=== PATIENT | male | born 1950 | race Caucasian/White ===

== ENCOUNTER 2018-04-27 10:14 | Inpatient (IN) | payer MEDICARE, OTHER ==
[~2018-04-27] VITALS: Ht 180.3 cm; Wt 101.6 kg
[~2018-04-27 10:14] MED LIST: ASPI-630 PO; ATOR20TA58 PO; CRAN1TAB6 PO; CRAN500C6 PO; CYAN10005 PO; FOLI1TAB16 PO; HYDR10TA2 PO; METO100T7 PO; MULT-289 PO; THIA100T8 PO; TRAM50TA PO
--- NOTE | 2018-04-27 10:29 | EKG ---
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
[2018-04-27 10:34] LABS: HEMOGLOBIN 15.2 g/dL (13.0-17.5); RED BLOOD COUNT 4.63 x10^6/uL (4.30-5.70); RED CELL DISTRIBUTION WIDTH 12.7 % (11.5-14.5); WHITE BLOOD COUNT 5.7 x10^3/uL (4.0-11.0)
--- NOTE | 2018-04-27 10:40 | RAD ---
CT head without intravenous contrast History: Code stroke. Found on floor and vomiting. Comparison: None. Technique: Axial images are obtained of the head from the skull base through the vertex without IV contrast. Exposure: One or more of the following individualized dose reduction techniques were utilized for this examination: 1. Automated exposure control 2. Adjustment of the mA and/or kV according to patient size 3. Use of iterative reconstruction technique Findings: Small old cortical infarctions are again seen involving the lateral right frontoparietal junction as well as involving the right right occipital parietal junction; these are without appreciable change. Moderate nonspecific white matter low-attenuation seen, probably from chronic microvascular ischemic disease. Small, old bilateral caudate head lacunar infarctions are seen. The ventricles are appropriate in size, shape, and location for the patient's age. No obvious intracranial mass, mass-effect, midline shift, hemorrhage or obvious acute infarction is identified. Basilar cisterns are patent. Bone windows demonstrate no acute calvarial abnormality. Mild-moderate pansinus disease is seen. Impression: 1. No acute intracranial process. Please note that CT can be relatively insensitive to acute ischemic infarction for up to 24 hours after symptom onset. 2. Chronic changes. 3. Results called to referring emergency department physician, Dr. Flood, at 1036 hours. Electronically signed by: Slim Dobbs MD (04/27/2018 10:37 AM) [place] [id number]
[2018-04-27 10:43] LABS: CALCIUM 9.5 mg/dL (8.5-10.1); CREATININE 0.8 mg/dL (0.7-1.3); GFR 95.8; POTASSIUM 4.9 mmol/L (3.5-5.1)
--- NOTE | 2018-04-27 10:51 | PHYS DOC ---
Past History Past Medical History: Alcoholism, COPD, High Cholesterol, Heart Disease, Hypertension, Lung Disease, [place] Past Surgical History: Other Smoking: Cigarettes, Less than 1pk/day Alcohol Use: Occasionally Drug Use: None Adult General Chief Complaint Chief Complaint: NEURO SYMPTOMS/DEFICITS HPI HPI 67-year-old male presents via EMS with concern for stroke. [facility] The patient woke up this morning around 6 AM and was watching TV. He went to stand up from his chair and had left-sided weakness and collapse to the floor. He laid on the floor for about 3 hours. The patient sleeps in that chair so there is no definitive time when he was known normal. He lives by himself. He tells me that over this period of time he feels like his speech has gotten garbled and then cleared up. He says that it is intermittent and comes and goes. He denies headache. He has known left-sided weakness. He states that his left hand "does not work" and this is not new. He is not sure if the weakness is worse at this time, but he doesn't normally fall from the weakness. He states having a history of A. fib but is not on a blood thinner. He does take aspirin. He denies chest pain or shortness of breath. He is able to answer questions without difficulty. He denies fever or chills. Review of Systems Review of Systems Constitutional: Denies fever or chills [] Eyes: Denies change in visual acuity, redness, or eye pain [] HENT: Denies nasal congestion or sore throat [] Respiratory: Denies cough or shortness of breath [] Cardiovascular: No additional information not addressed in HPI [] GI: Denies abdominal pain, nausea, vomiting, bloody stools or diarrhea [] : Denies dysuria or hematuria [] Musculoskeletal: Denies back pain or joint pain [] Integument: Denies rash or skin lesions [] Neurologic: Increased left-sided weakness, slurred speech[] Endocrine: Denies polyuria or polydipsia [] All other systems were reviewed and found to be within normal limits, except as documented in this note. Allergies Allergies Allergies Coded Allergies Type Severity Reaction Last Updated Verified Evrjokg-Upk-Nvg Reductase Inhibitor Allergy Intermediate 12/24/13 Yes Physical Exam Physical Exam Constitutional: Well developed, well nourished, no acute distress, non-toxic appearance. [] HENT: Normocephalic, atraumatic, bilateral external ears normal, oropharynx moist, no oral exudates, nose normal. [] Eyes: PERRLA, EOMI, conjunctiva normal, no discharge. [] Neck: Normal range of motion, no tenderness, supple, no stridor. [] Cardiovascular:Heart rate regular rhythm, no murmur [] Lungs & Thorax: Bilateral breath sounds clear to auscultation [] Abdomen: Bowel sounds normal, soft, no tenderness, no masses, no pulsatile masses. [] Skin: Warm, dry, no erythema, no rash. [] Back: No tenderness, no CVA tenderness. [] Extremities: No tenderness, no cyanosis, no clubbing, ROM intact, no edema. [] Neurologic: Alert and oriented X 3, decreased strength in the left upper 4/5 and lower extremity 3/5. 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 [ ] Psychologic: Affect normal, judgement normal, mood normal. [] Current Patient Data Lab Results Laboratory Tests Test 04/27/18 10:22 04/27/18 10:23 Glucose (Fingerstick) 126 mg/dL (70-99) H White Blood Count 5.7 x10^3/uL (4.0-11.0) Red Blood Count 4.63 x10^6/uL (4.30-5.70) Hemoglobin 15.2 g/dL (13.0-17.5) Hematocrit 45.0 % (39.0-53.0) Mean Corpuscular Volume 97 fL (79-100) Mean Corpuscular Hemoglobin 33 pg (25-35) Mean Corpuscular Hemoglobin Concent 34 g/dL (31-37) Red Cell Distribution Width 12.7 % (11.5-14.5) Platelet Count 354 x10^3/uL (140-400) EKG EKG Sinus tachycardia, rate 102, ST depressions in lead 1, 2, V4 through V6[] Radiology/Procedures Radiology/Procedures [] Impressions: CT head without intravenous contrast History: Code stroke. Found on floor and vomiting. Comparison: None. Technique: Axial images are obtained of the head from the skull base through the vertex without IV contrast. Exposure: One or more of the following individualized dose reduction techniques were utilized for this examination: 1. Automated exposure control 2. Adjustment of the mA and/or kV according to patient size 3. Use of iterative reconstruction technique Findings: Small old cortical infarctions are again seen involving the lateral right frontoparietal junction as well as involving the right right occipital parietal junction; these are without appreciable change. Moderate nonspecific white matter low-attenuation seen, probably from chronic microvascular ischemic disease. Small, old bilateral caudate head lacunar infarctions are seen. The ventricles are appropriate in size, shape, and location for the patient's age. No obvious intracranial mass, mass-effect, midline shift, hemorrhage or obvious acute infarction is identified. Basilar cisterns are patent. Bone windows demonstrate no acute calvarial abnormality. Mild-moderate pansinus disease is seen. Impression: 1. No acute intracranial process. Please note that CT can be relatively insensitive to acute ischemic infarction for up to 24 hours after symptom onset. 2. Chronic changes. 3. Results called to referring emergency department physician, Dr. Uriostegui, at 1036 hours. Electronically signed by: Angelina Cisneros MD (04/27/2018 10:37 AM) [place] [id number] DICTATED AND SIGNED BY: ANGELINA CISNEROS MD DATE: 04/27/18 1031 CC: DAVID URIOSTEGUI DO; PCP,NO Course & Med Decision Making Course & Med Decision Making Pertinent Labs and Imaging studies reviewed. (See chart for details) The patient's labs are unremarkable. His troponin is negative. His EKG shows some depressions, but not a clear definitive pattern. The patient's head CT is negative for acute findings. The patient appears to be doing better overall. His speech is clear. He states no longer feeling left-sided numbness in his face. Throughout the strength testing portion of my exam, the patient reiterated that my findings were his baseline, so it is hard to definitively determine if his weakness is increased or not. I discussed the case with Dr. Koenig and he has agreed to admit the patient with consult to neurology. The patient is in agreement with this plan. 35 minutes of critical care time spent on this patient. This is exclusive of other separately billable procedures. [] Dragon Disclaimer Dragon Disclaimer This electronic medical record was generated, in whole or in part, using a voice recognition dictation system. NIH Stroke Scale: NIH Stroke Scale Response (Comments) Value Level of Consciousness: 0 Alert/Responsive 0 LOC Questions: 0 Answers both correctly 0 LOC Commands: 0 Performs both tasks 0 Best Gaze: 0 Normal 0 Visual: 0 No visual loss 0 Facial Palsy: 1 Minor paralysis 1 Motor - Left Arm 1 Drifts, but can hold 1 Motor - Right Arm 0 No drift 0 Motor - Left Leg 1 Drift but can hold 1 Motor: Right Leg 0 No drift 0 Limb Ataxia: 0 Absent 0 Sensory: 1 Mid to moderate loss 1 Best Language: 0 Normal 0 Dysathria: 0 Normal 0 Extinction and Inattention: 0 Normal 0 Total 4 Departure Departure: Referrals: PCP,NO (PCP) DAVID URIOSTEGUI DO Apr 27, 2018 10:51
[2018-04-27] MEDS ORDERED: IV NORMAL SALINE 1,000ML 1,000 ML IV ONE (11:00)
--- NOTE | 2018-04-27 12:31 | RAD ---
PORTABLE CHEST 1V History: portable chest 1 view - code stroke, slurred speech. Comparison: None. Cardiomediastinal silhouette is upper limits normal in width. Hyperexpansion of both lungs compatible with emphysema. No focal consolidation or infiltrate. Minimal left lung base markings compatible with atelectasis. No pneumothorax identified. No evidence of pleural effusion. Impression: Minimal left lung base atelectasis. No focal consolidation. Electronically signed by: Slim Bhagat MD (04/27/2018 12:28 PM) [facility]
[2018-04-27 12:41] LABS: BACTERIA,URINE 0 /HPF (0-FEW); BILIRUBIN,URINE NEG (NEG); CLARITY,URINE CLEAR; COLOR,URINE YELLOW; GLUCOSE,URINE NEG (NEG); NITRITE,URINE NEG (NEG); RBC,URINE OCC /HPF (0-2); UROBILINOGEN,URINE 0.2 mg/dL (0.2 mg/dL); WBC,URINE OCC /HPF (0-4)
[2018-04-27 12:42] LABS: SQUAMOUS EPITHELIAL CELL,UR FEW /LPF
[2018-04-27 13:00] VITALS: BP 117/79
--- NOTE | 2018-04-27 14:34 | HP ---
ADMIT DATE: 04/27/2018 HISTORY OF PRESENT ILLNESS: The patient is a 67-year-old male patient who was brought by the emergency medical service personnel with concern for stroke. He was diverted from the [facility]. The patient woke up this morning at around 6:00 a.m. and was watching TV. He went to stand up from his chair and he has had left-sided weakness and collapsed to the floor. He laid on the floor for about 3 hours. The patient sleeps in the chair, so there is no definite time. When he was normal, he lives by himself and he stated that over this period of time, he feels like his speech has gotten garbled and then cleared up. He states that is intermittent and comes and goes. He denied any headache. He is known to have left-sided weakness and he stated that his left hand does not work, but that is not new. He is not sure whether if the weakness is worse at this time, but he does normally fall from the weakness. He apparently was knocking on the floor when his neighbor heard the noise and came and called the ambulance to bring him to the Emergency Room. By the time arrived to the Emergency Room. He was awake, alert, answered all questions without difficulty. He was extensively investigated. Had had a CT scan of the head without contrast, which basically showed no acute intracranial process and has some chronic changes. His chest x-ray was unremarkable and his lab works were all within acceptable range and was admitted for further evaluation and to consult Dr. Patel for possible new onset TIA. He apparently is known to have right carotid artery stenosis, status post right carotid endarterectomy that was done about 6 years ago at the [facility]. He stated that he did have carotid Doppler ultrasound done recently at the [facility] was interpreted as normal. When I examined him this afternoon, he was awake, alert and stated that he feel that he is weak on the left side, does not get back to his baseline. PAST MEDICAL HISTORY: Significant for hypertension, has right middle cerebral artery territory infarct with left-sided hemiplegia from which he has recovered substantially. He was found at this time has a right carotid stenosis for which he underwent carotid endarterectomy about 6-7 years ago. His other medical problems include COPD. PAST SURGICAL HISTORY: Significant for colonoscopy and right carotid endarterectomy. FAMILY HISTORY: He has 2 brothers and 2 sisters who are alive and healthy. His younger brother at the age of 55 with myocardial infarction. His father at the age of 78 because of myocardial infarction. His mother is still alive at the age of 87 and healthy. SOCIAL HISTORY: He is . He has 1 daughter and 2 sons. He currently smokes. He used to smoke a pack a day and drinks alcohol occasionally. 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 ALLERGIES: He has no known drug allergies. REVIEW OF SYSTEMS: The patient denied any blurring of vision, cataract, glaucoma or macular degeneration. Denied any earache, tinnitus or sensorineural deafness. Denied any nosebleeds, stuffy nose or postnasal drip. Denied any sore throat, sore tongue, toothache, hoarseness of voice or difficulty swallowing. Denied any nausea, vomiting, diarrhea or constipation. Denied any hematemesis, melena or hematochezia. He denied any dysuria, frequency or hematuria. Denied any chest pain. Denied any cough, phlegm or hemoptysis. Denied any chills, rigors or fever. MEDICATIONS: His medication list is not available yet. PHYSICAL EXAMINATION: GENERAL: When I examined him this afternoon, he looked well and was clearly in no apparent respiratory distress. No pallor, jaundice, cyanosis or thyromegaly. No jugular venous distension. No lower limb edema. VITAL SIGNS: His heart rate was 102, blood pressure 134/100, temperature was 98, respiratory rate was 16 and oxygen saturation was 99%. HEAD, EYES, EARS, NOSE AND THROAT: Showed normocephalic, atraumatic. NECK: Supple. HEART: Showed normal first and second heart sounds with no gallop, rub or murmur. CHEST: Clear to auscultation. No crepitation or rhonchi. ABDOMEN: Distended, soft, nontender. No guarding or rigidity. No organomegaly. Hernial orifice intact. Bowel sounds normal. NEUROLOGIC: He is awake, alert, responding appropriately. All cranial nerves intact. He definitely has left-sided hemiparesis, worse in the right upper extremity than left lower extremity. LABORATORY DATA: His lab work on admission showed a serum sodium 136, potassium 4.9, chloride 97, bicarbonate 28, anion gap of 11, BUN 16, creatinine 0.8, estimated GFR was 96 mL per minute, his glucose 140, calcium was 9.5. His white cell count was 5700, hemoglobin 15, hematocrit 45, MCV 97 and platelet count of 354,000. His prothrombin time was 9.8, INR of 1, aPTT was 25. Urinalysis showed the urine was yellow, clear with a pH of 5.5, specific gravity of 1.010. There is small amount of protein. The urine was negative for glucose, ketones, trace of blood, negative for nitrite and bilirubin as well as leukocyte esterase. There are occasional rbc's, occasional wbc's, and no bacteria. His chest x-ray showed that the patient has minimal left lung base atelectasis and a CT scan of his brain showed that he has some old cortical infarction involving the lateral right frontoparietal junction as well as involving the right occipital parietal junction. These are without appreciable changes. He has moderate nonspecific white matter low attenuation seen, probably from chronic microvascular ischemic disease, small old bilateral caudate head lacunar infarction is seen. The ventricles are appropriate in size, shape and formation for the patient's age. No obvious intracranial mass, mass effect or midline shift, hemorrhage or obvious acute infarction is identified. Basilar cisterns are patent. The bone windows demonstrate no acute calvarial abnormality, [id number] oliver sinus disease is seen. IMPRESSION AND PLAN: The patient was basically admitted with weakness and fall on the floor with probably worsening on the left-sided weakness. The patient did not lose consciousness. He did not bite his tongue or become incontinent. He is known to have atrial fibrillation, but he is on aspirin. He used to be on Coumadin, but he said bleed multiple times and decided to stop taking Coumadin on his own. My plan is to admit him to [address] [place] [address]. We will try to get the result of carotid Doppler ultrasound done at the [facility]. We will check his fasting lipid profile tomorrow and consult Dr. Patel and also physical and occupational therapy. NASRA RAOZ MD DR: ANDRE/treva JOB#: [id number] / [id number]
--- NOTE | 2018-04-27 14:57 | EKG ---
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
[2018-04-27] MEDS ORDERED: LORazepam 2 MG/ML VIAL IV PRN (15:00)
[2018-04-27] MEDS ORDERED: chlordiazePOXIDE HCL 25 MG CAPSULE PO PRN ×2 (15:00)
[2018-04-27] MEDS ORDERED: LORazepam 1 MG TABLET PO PRN (15:00)
[2018-04-27] MEDS ORDERED: HALOPERIDOL LACT 5 MG/ML VIAL. IM PRN (15:00)
[2018-04-27] MEDS ORDERED: SENNOSIDES/DOCUSATE 8.6/50MG TABLET. PO PRN (15:15)
[2018-04-27] MEDS ORDERED: ALBUTEROL SULFATE 8GM INHALER. IH PRN (15:15)
[2018-04-27] MEDS ORDERED: MAG355OR11 PO (15:29)
[2018-04-27] MEDS ORDERED: CYCL5TAB PO (15:29)
[2018-04-27] MEDS ORDERED: NAPR-514 PO (15:29)
[2018-04-27] MEDS ORDERED: EZET10TA18 PO (15:29)
[2018-04-27] MEDS ORDERED: CALCIUM 500 MG PO (15:29)
[2018-04-27] MEDS ORDERED: ALBU18HF IH (15:29)
[2018-04-27] MEDS ORDERED: SENN-37 PO (15:29)
[2018-04-27] MEDS ORDERED: LISI40TA PO (15:29)
[2018-04-27] MEDS ORDERED: CHOL10003 PO (15:29)
[2018-04-27] MEDS ORDERED: ACET-1571 PO (15:29)
[2018-04-27] MEDS ORDERED: DOXE50CA PO (15:29)
[2018-04-27] MEDS ORDERED: OLOD4MIS2 IH (15:29)
[2018-04-27] MEDS ORDERED: OMEG-33 PO (15:29)
[2018-04-27 15:36] VITALS: BP 131/82
[2018-04-27] MEDS ORDERED: MAG HYDROX/AL HYDROX/SIMETH 30 ML ORAL.SUSP PO PRN (15:45)
[2018-04-27] MEDS ORDERED: CYCLOBENZAPRINE 10 MG TABLET. PO PRN (15:45)
[2018-04-27] MEDS ORDERED: ALBUTEROL SULFATE 2.5 MG/3 ML NEBU. NEB PRN (16:00)
[2018-04-27 19:15] VITALS: BP 130/74
[2018-04-27] MEDS: DOXEPIN HCL 25 MG CAPSULE PO SCH (20:24)
[2018-04-27] MEDS: OMEGA-3 FATTY ACIDS/FISH OIL 1,000 MG CAPSULE. PO SCH (20:25)
[2018-04-27] MEDS: METOPROLOL TART IMMED RELEASE 25 MG TABLET PO SCH (20:25)
[2018-04-27] MEDS: CALCIUM CARBONATE 500 MG TABLET PO SCH (20:25)
--- NOTE | 2018-04-27 22:05 | CONS ---
DATE OF CONSULTATION: 04/27/2018 NEUROLOGICAL CONSULTATION REASON FOR CONSULTATION: Rule out stroke versus TIA. HISTORY OF PRESENT ILLNESS: This is a 67-year-old right-handed male who was admitted through Emergency Room this morning after he presented with chief complaints of worsening of his left-sided weakness and slurred speech. According to the patient, he was talking to his daughter on phone and she told him his speech was not clear. When he got out of the chair, he fell to the floor and he was not able to stand up. Therefore, he stayed on the floor for approximately 3 hours, then he knocked on his door asking for help. EMS was activated and brought the patient to the Emergency Room. The patient did recall the event and he was alert and oriented. According to the patient, he had history of 2 strokes, the first stroke was in 2008 and the second stroke was 2013. The etiology of his throat is not clear. He mentioned about possible intracranial bleed because of severe hypertension, however, he underwent a right carotid endarterectomy after the second stroke. As a result of the stroke, he had left hemiparesis, required extensive rehabilitation. The patient stated his left side has been worsened than the baseline and his speech has been close to normal. He denies headaches, visual disturbances, chest pain, shortness of breath, palpitation, or vertigo. He denies any recent head injuries. The patient has been using a walker for ambulation. Initial nonenhanced head CT scan revealed no evidence of acute intracranial process, but shows bilateral caudate head lacunar infarct and bilateral white matter small vessel ischemic changes. PAST MEDICAL HISTORY: Significant for stroke as described above resulted in left-sided weakness, hypertension, coronary artery disease, COPD, and bilateral hearing loss. SOCIAL HISTORY: The patient is single. He has 1 daughter and 2 sons. He smokes currently, but he used to smoke 1 pack of cigarettes daily. He drinks alcohol occasionally. FAMILY HISTORY: His father at the age of 78 from myocardial infarction and his mother is alive at age of 87. CURRENT HOME MEDICATIONS: Tylenol, aspirin 81 mg daily, Librium, vitamin B12, Flexeril, doxepin, Zetia, fish oil, folic acid, haloperidol, lisinopril, lorazepam, multivitamins and calcium, and vitamin D3. ALLERGIES: STATINS. REVIEW OF SYSTEMS: A 10-point review of system was performed and consistent with left-sided weakness as mentioned above in history of present illness and intermittent shortness of breath secondary to COPD. PHYSICAL EXAMINATION: GENERAL: An obese white male, not in acute distress. He weighs 224 pounds with BMI of 31.2. VITAL SIGNS: Blood pressure 131/82, respiratory rate 20, pulse is 117, temperature 98.2, oxygen saturation is 95% on room air. HEENT: Normocephalic, atraumatic, otherwise unremarkable. NECK: Supple. Negative for carotid bruit, lymphadenopathy, or thyromegaly. LUNGS: Diminished breath sounds bilaterally. No wheezing or rales. CARDIOVASCULAR: Tachycardia. Normal S1, S2. ABDOMEN: Soft. Bowel sounds positive. EXTREMITIES: Negative for cyanosis, clubbing, or pitting edema. NEUROLOGIC: Mental status: The patient is alert and oriented x 3. Speech is fluent. There is no language dysfunction. Memory, judgment, and abstract thinking are normal. The patient denies hallucination or delusion. CRANIAL NERVES: Visual waddell are full. The pupils are reactive to light and accommodation. The extraocular movements are intact. There is no nystagmus. There is no facial motor or sensory deficit. Hearing is diminished bilaterally. The palate is elevated symmetrically. Sternocleidomastoid muscles are powerful bilaterally. The patient shrugs his shoulders symmetrically, protrudes his tongue in the midline without fasciculation or atrophy. MOTOR: No focal muscle bulk was seen. The tone is normal. The strength is 4/5 in the left upper and lower extremities, more distally than proximally compared to those on the right side. Sensory examination revealed diminished pinprick and light touch senses over the left face, upper and lower extremities in all dermatomes. Deep tendon reflexes were symmetric and hypoactive with absent Achilles responses. Gait: The patient has unsteady stand and he uses a walker for ambulation. LABORATORY DATA: CBC revealed white blood cells of 5700, hemoglobin 15.2, hematocrit 44, platelet count 354,000. Chemistry revealed sodium 136, potassium 4.9, chloride 97, CO2 of 28, BUN 16, creatinine 0.8, and glucose 140. Calcium 9.5. Troponin level less than 0.017. Coagulation: PT is 9.8, INR 1, and PTT is 25. DIAGNOSTIC DATA: Chest x-ray revealed minimal left lung base atelectasis and a nonenhanced head CT scan as described above in the history of present illness. IMPRESSION: 1. Longstanding history of stroke and two strokes resulted in left hemiparesis with possible worsening since this morning, suggestive of possible a new stroke based on the history. However, physical examination revealed left hemiparesis, typical for stroke and left hemisensory deficits. 2. Multiple medical problems include hypertension and chronic obstructive pulmonary disease, status post right carotid endarterectomy. RECOMMENDATIONS: 1. [facility]. 2. We will increase baby aspirin to 2 tablets daily with food. 3. We will continue with physical therapy. 4. Continue with current management initiated by Dr. Koenig. M Aneesh TARANGO MD DR: REYNA/treva JOB#: [id number] / [id number]
[2018-04-27 22:35] VITALS: BP 147/79
[2018-04-28 05:41] VITALS: BP 162/89
[2018-04-28 06:56] LABS: CALCIUM 9.2 mg/dL (8.5-10.1); CREATININE 0.9 mg/dL (0.7-1.3); GFR 83.7; MAGNESIUM 2.2 mg/dL (1.8-2.4); POTASSIUM 3.8 mmol/L (3.5-5.1)
[2018-04-28] MEDS: CHOLECALCIFEROL (VITAMIN D3) 1,000 UNIT TABLET PO SCH (08:36)
[2018-04-28] MEDS: CYANOCOBALAMIN (VITAMIN B-12) 1,000 MCG TABLET. PO SCH (08:36)
[2018-04-28] MEDS: LISINOPRIL 20 MG TABLET PO SCH (08:36)
[2018-04-28] MEDS: EZETIMIBE 10 MG TABLET PO SCH (08:37)
[2018-04-28] MEDS: ACETAMINOPHEN 500 MG TABLET PO SCH (08:37)
[2018-04-28] MEDS: ASPIRIN 81 MG TAB.CHEW PO SCH (08:38)
[2018-04-28] MEDS: METOPROLOL TART IMMED RELEASE 25 MG TABLET PO SCH ×2 (08:38→20:14)
[2018-04-28] MEDS: MULTIVITAMIN with MINERAL TABLET. PO SCH (08:38)
[2018-04-28] MEDS: FOLIC ACID 1 MG TABLET PO SCH (08:38)
[2018-04-28] MEDS: OMEGA-3 FATTY ACIDS/FISH OIL 1,000 MG CAPSULE. PO SCH ×2 (08:38→20:11)
[2018-04-28] MEDS: THIAMINE IM 200 MG/2 ML VIAL. IM SCH (08:39)
[2018-04-28] MEDS: CALCIUM CARBONATE 500 MG TABLET PO SCH ×2 (08:39→15:25)
[2018-04-28] MEDS ORDERED: MULTIVITAMIN with MINERAL TABLET. PO SCH (09:00)
[2018-04-28] MEDS ORDERED: ASPIRIN 81 MG TAB.CHEW PO SCH (09:00)
[2018-04-28] MEDS ORDERED: NON FORMULARY ITEM (Olodaterol HCl (Striverdi Respimat) 2 PUFF) IH SCH (09:00)
--- NOTE | 2018-04-28 09:02 | PDOC2 ---
CONSULT Date of Admission DATE: 04/28/18 TIME: 09:02 Reason for Consult: sinus tachycardia Problem List Problems Medical Problems: (1) TIA (transient ischemic attack) Status: Acute History of Present Illness Mr Hickey is a 67-year-old white male with history of paroxysmal atrial fibrillation, CVA, TIA, hypertension who normally follows at the [facility]. He normally sleeps in a recliner and yesterday morning when he woke he had increased left sided weakness which caused a fall when he tried to stand. He has previous history of a CVA with left sided hemiparesis which improved after extensive rehab along with some minimal slurring. yesterday both symptoms were apparently significantly worse. He was unable to get up on his own and was found by a neighbor who called EMS. By arrival to the ED his symptoms had essentially resolved and he was back to baseline. He reports having had intermittent episodes of speech impairment for some time. He denies any chest pain, dyspnea or congestive symptoms. He does have a history of paroxysmal atrial fibrillation and takes aspirin alone. He reports stopping warfarin due to recurrent nose bleeds but indicates he is unsure of weather his INR had been steady and believes he only took the warfarin for a couple weeks. He does report frequent falls at home do to his balance and weakness. He denies any significant palpitations, lightheadedness or syncopal episodes. His functional capacity is limited due to weakness and balance. 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 Family History He has 2 brothers and 2 sisters who are alive and healthy. His younger brother at the age of 55 with myocardial infarction. His father at the age of 78 because of myocardial infarction. His mother is still alive at the age of 87 and healthy. Social History +ppd smoker. Occasional ETOH consumption , denies illicit drugs Current Medications Current Medications Sodium Chloride 1,000 ml @ 1,000 mls/hr 1X ONCE IV Last administered on 04/27at 11:22; Start 04/27/18 at 11:00; Stop 04/27/18 at 11:59; Status DC Multivitamins/ Calcium (Thera-M Plus) 1 tab DAILY PO Last administered on 04/28at 08:38; Start 04/28/18 at 09:00 Folic Acid (Folic Acid) 1 mg DAILY PO Last administered on 04/28/18at 08:38; Start 04/28/18 at 09:00 Thiamine HCl (Thiamine Im) 100 mg DAILY IM Last administered on 04/28/18at 08: 39; Start 04/28/18 at 09:00; Stop 05/03/18 at 08:59 Chlordiazepoxide (Librium) 50 mg PRN Q1HR PRN PO For CIWA 8-14; Start at 15:00 Chlordiazepoxide (Librium) 100 mg PRN Q1HR PRN PO For CIWA 15 or greater; Start 04/27/18 at 15:00 Lorazepam (Ativan) 4 mg PRN Q1HR PRN PO For CIWA 8-14; Start 04/27/18 at 15:00 Lorazepam (Ativan) 2 mg PRN Q1HR PRN IV For CIWA 8-14; Start 04/27/18 at 15:00 Haloperidol Lactate (Haldol) 5 mg PRN Q4HRS PRN IM Hallucinatns,Confusn, Delirium; Start 04/27/18 at 15:00 Albuterol Sulfate (Ventolin Hfa Inhaler) 2 puff QID PRN IH SHORTNESS OF BREATH/ WHEEZING; Start 04/27/18 at 15:15; Status UNV Vitamin D (Vitamin D3) 1,000 unit DAILY PO Last administered on 04/28/18at 08: 36; Start 04/28/18 at 09:00 Cyanocobalamin (Vitamin B-12) 1,000 mcg DAILY PO Last administered on at 08:36; Start 04/28/18 at 09:00 Senna/Docusate Sodium (Senna Plus) 1 tab PRN DAILY PRN PO CONSTIPATION; Start 04/27/18 at 15:15 Acetaminophen (Tylenol) 1,000 mg DAILY PO Last administered on 04/28/18at 08:37 ; Start 04/28/18 at 09:00 Aspirin (Children'S Aspirin) 81 mg DAILY PO ; Start 04/28/18 at 09:00; Stop at 09:00; Status DC Cyclobenzaprine HCl (Flexeril) 10 mg PRN BID PRN PO MUSCLE SPASMS; Start 04/27 at 15:45 Doxepin HCl (SINEquan) 25 mg QHS PO Last administered on 04/27/18at 20:24; Start 04/27/18 at 21:00 EZETIMIBE (Zetia) 5 mg DAILY PO Last administered on 04/28/18at 08:37; Start 04/28/18 at 09:00 Lisinopril (Prinivil) 40 mg DAILY PO Last administered on 04/28/18at 08:36; Start 04/28/18 at 09:00 Al Hydroxide/Mg Hydroxide (Mylanta Plus Xs) 30 ml PRN QID PRN PO HEARTBURN/ INDIGESTION; Start 04/27/18 at 15:45 Multivitamins/ Calcium (Thera-M Plus) 1 tab DAILY PO ; Start 04/28/18 at 09:00 ; Status Cancel Non-Formulary Medication (Olodaterol HCl (Striverdi Respimat)) 2 puff DAILY IH ; Start 04/28/18 at 09:00; Status UNV Fish Oil (Fish Oil) 1,000 mg BID PO Last administered on 04/28/18at 08:38; Start 04/27/18 at 21:00 Calcium Carbonate/ Glycine (Oscal) 500 mg BIDWMEALS PO Last administered on at 08:39; Start 04/27/18 at 17:00 Albuterol Sulfate (Ventolin) 2.5 mg PRN QID PRN NEB SHORTNESS OF BREATH; Start 04/27/18 at 16:00 Aspirin (Children'S Aspirin) 162 mg DAILY PO Last administered on 04/28/18at 08 :38; Start 04/28/18 at 09:00 Metoprolol Tartrate (Lopressor) 25 mg BID PO Last administered on 04/28/18at 08 :38; Start 04/27/18 at 21:00 Active Scripts Active Reported Naproxen 500 Mg Tablet 0.5 Tab PO BID Fancy Farm 3 1,000 Mg Softgel (Fancy Farm-3 Fatty Acids/Fish Oil) 1 Each Capsule 1 Each PO BID Cyclobenzaprine Hcl 5 Mg Tablet 1 Tab PO BID PRN [Calcium 500 Mg ] 1 Tab PO BID Zetia (Ezetimibe) 10 Mg Tablet 0.5 Tab PO DAILY Ventolin Hfa Inhaler (Albuterol Sulfate) 18 Gm Hfa.aer.ad 2 Puff IH QID PRN Striverdi Respimat (Olodaterol HCl) 4 Gm Mist.inhal 2 Puff IH DAILY Lisinopril 40 Mg Tablet 1 Tab PO DAILY Doxepin Hcl 50 Mg Capsule 0.5 Cap PO QHS Senokot-S Tablet (Sennosides/Docusate Sodium) 1 Each Tablet 1 Tab PO DAILY PRN Vitamin D3 (Cholecalciferol (Vitamin D3)) 1,000 Unit Tablet 1 Tab PO DAILY Maalox Advanced Suspension (Mag Hydrox/Aluminum Hyd/Simeth) 355 Ml Oral.susp 30 Ml PO QID PRN Extra Strength Non-Aspirin (Acetaminophen) 500 Mg Tablet 1,000 Mg PO DAILY Aspirin 81 Mg Tab.chew 81 Mg PO DAILY Vitamin B-12 (Cyanocobalamin (Vitamin B-12)) 1,000 Mcg Tablet 1,000 Mcg PO DAILY Men's One Daily (Multivitamin With Minerals) 1 Each Tablet 1 Each PO DAILY Allergies: Coded Allergies: Pqsdbqh-Cls-Kkv Reductase Inhibitor (Verified Allergy, Intermediate, ) patient had Lipitor as a home med, but reports to me now that he is allergic to statins & does not take it anymore. Review of System as per hpi or negative General: Alert, Oriented X3, Cooperative, No acute distress HEENT: Atraumatic, EOMI, Mucous membr. moist/pink Lungs: Clear to auscultation, Normal air movement Heart: Normal S1, Normal S2, Other (no gallops, clicks or rubs) Abdomen: Normal bowel sounds, Soft Extremities: No cyanosis, No edema, Normal pulses Neuro: Normal speech Psych/Mental Status: Mental status NL, Mood NL VITALS Vital Signs Date Time Temp Pulse Resp B/P (MAP) Pulse Ox O2 Delivery O2 Flow Rate FiO2 04/28/18 08:38 85 162/89 04/28/18 05:41 97.8 18 97 Room Air Labs Laboratory Tests Test 04/27/18 10:22 04/27/18 10:23 04/27/18 12:22 04/28/18 06:36 Glucose (Fingerstick) 126 mg/dL (70-99) White Blood Count 5.7 x10^3/uL (4.0-11.0) Red Blood Count 4.63 x10^6/uL (4.30-5.70) Hemoglobin 15.2 g/dL (13.0-17.5) Hematocrit 45.0 % (39.0-53.0) Mean Corpuscular Volume 97 fL (79-100) Mean Corpuscular Hemoglobin 33 pg (25-35) Mean Corpuscular Hemoglobin Concent 34 g/dL (31-37) Red Cell Distribution Width 12.7 % (11.5-14.5) Platelet Count 354 x10^3/uL (140-400) Prothrombin Time 9.8 SEC (9.4-11.4) Prothromb Time International Ratio 1.0 (0.9-1.1) Activated Partial Thromboplast Time 25 SEC (23-33) Sodium Level 136 mmol/L (136-145) 137 mmol/L (136-145) Potassium Level 4.9 mmol/L (3.5-5.1) 3.8 mmol/L (3.5-5.1) Chloride Level 97 mmol/L (98-107) 99 mmol/L (98-107) Carbon Dioxide Level 28 mmol/L (21-32) 26 mmol/L (21-32) Anion Gap 11 (6-14) 12 (6-14) Blood Urea Nitrogen 16 mg/dL (8-26) 15 mg/dL (8-26) Creatinine 0.8 mg/dL (0.7-1.3) 0.9 mg/dL (0.7-1.3) Estimated GFR (Cockcroft-Gault) 95.8 83.7 Glucose Level 140 mg/dL (70-99) 123 mg/dL (70-99) Calcium Level 9.5 mg/dL (8.5-10.1) 9.2 mg/dL (8.5-10.1) Troponin I Quantitative < 0.017 ng/mL (0-0.055) Urine Collection Type Unknown Urine Color Yellow Urine Clarity Clear Urine pH 5.5 Urine Specific Rudy 1.010 Urine Protein 30 mg/dl (NEG-TRACE) Urine Glucose (UA) Neg mg/dL (NEG) Urine Ketones (Stick) Neg mg/dL (NEG) Urine Blood Trace (NEG) Urine Nitrite Neg (NEG) Urine Bilirubin Neg (NEG) Urine Urobilinogen Dipstick 0.2 mg/dL (0.2 mg/dL) Urine Leukocyte Esterase Neg (NEG) Urine RBC Occ /HPF (0-2) Urine WBC Occ /HPF (0-4) Urine Squamous Epithelial Cells Few /LPF Urine Bacteria 0 /HPF (0-FEW) Magnesium Level 2.2 mg/dL (1.8-2.4) RA-Ujr-X-Type Natriuretic Peptide 203 pg/mL (0-124) Images EKG - sinus tachycardia, BBB, nonspecific st/t abn tele - sinus tachycardia Assessment/Plan 1. Sinus tachycardia in patient with history of paroxysmal atrial fibrillation - no AF observed. Continue beta blockers and aspirin. [id number] = 5, indicating need for anticoagulation. He does have history of recurrent falls and has been unwilling to take anticoagulation due to recurrent epistaxis while on warfarin. Will check echo for LV function, atrial enlargement and valvular disease. Would consider outpatient MCT for AF burden which could be completed by [place] cardiology as he receives his medical care there. 2. CVA with likely recurrent TIAs - neuro following, awaiting records of recent carotid duplex. check bubble study with echo. 3. hypertension - resume home antihypertensives and increase beta dory for improved systolic control 4. hyperlipidemia - check lipids MAURO TITUS APRN Apr 28, 2018 09:02
[2018-04-28 11:00] VITALS: BP 143/85
--- NOTE | 2018-04-28 14:15 | EKG ---
[address] [address] Test Date: 2018-04-28 Test Time: 11:13:51 Pat Name: MARY CARMEN RICHARDS Department: Room: 105 A Gender: M [employer] Specialist: ISIDRO : [id number] Requested By: NASRA RAZO Order Number: [id number] Reading MD: Néstor Mancera Measurements Intervals [place] Rate: 70 P: 47 MD: 204 QRS: 14 QRSD: 96 T: 19 QT: 412 QTc: 448 Interpretive Statements SINUS RHYTHM NONSPECIFIC ST-T WAVE CHANGES RBBB ABNORMAL EKG Electronically Signed On 04-28-2018 16:05:53 OFFICE AUTOMATION TECHNICIAN by Néstor Mancera
[2018-04-28 15:20] VITALS: BP 115/75
--- NOTE | 2018-04-28 15:27 | CARD ---
MR#: [id number] Date of Study: 04/28/2018 Ordering Physician: MAURO TITUS, Referring Physician: NASRA RAZO, Tech: Claudia Turner APPROVED REPORT EXAM: Two-dimensional and M-mode echocardiogram with Doppler and color Doppler. Other Information Quality : AverageHR: 67bpm Technically limited study due to body habitus. INDICATION CVA/TIA Echo Enhancing Agent Indication: Rule Out Septal Defect Agent/Amount Used: Agitated [id number] 2D DIMENSIONS Left Atrium(2D)3.7 (1.6-4.0cm)IVSd1.5 (0.7-1.1cm) Aortic Root(2D)3.8 (2.0-3.7cm)LVDd5.3 (3.9-5.9cm) LVOT Diameter2.3 (1.8-2.4cm)PWd1.4 (0.7-1.1cm) LVDs3.2 (2.5-4.0cm)FS (%) 39.7 % SV95.9 mlLVEF(%)69.8 (>50%) Aortic Valve AoV Peak Conrad.149.1cm/sAoV VTI29.4cm AO Peak GR.8.9mmHgLVOT Peak Conrad.112.8cm/s LVOT VTI 21.14cmAO Mean GR.5mmHg MARY (VMAX)3.37jp6UGM (VTI)2.98cm2 Mitral Valve MV E Gddipens04.5cm/sMV DECEL [id number] MV A Xahqujqb36.7cm/sE/A Ratio0.9 Pulmonary Valve PV Peak Yqotlqwb99.3cm/sPV Peak Grad.4mmHg Pulmonary Vein S1 Bekqmlyj73.5cm/sD2 Gebpbnqv02.7cm/s LEFT VENTRICLE The left ventricle is normal size. There is moderate concentric left ventricular hypertrophy. The sys tolic function is mildly impaired. EF 45% Septal motion consistent with conduction abnormality. Mild global hypokinesis. Transmitral Doppler flow pattern is Grade I-abnormal relaxation pattern. RIGHT VENTRICLE The right ventricle is mildly dilated. There is normal right ventricular wall thickness. The right ve ntricular systolic function is normal. ATRIA The left atrium size is normal. The right atrium size is normal. The interatrial septum is intact wit h no evidence for an atrial septal defect or patent foramen ovale as noted on 2-D or Doppler imaging. AORTIC VALVE The aortic valve is normal in structure and function. Doppler and Color Flow revealed trace aortic re gurgitation. There is no significant aortic valvular stenosis. MITRAL VALVE The mitral valve is normal in structure and function. There is no mitral valve stenosis. Doppler and Color-flow revealed trace mitral regurgitation. TRICUSPID VALVE The tricuspid valve is not well visualized. Doppler and Color Flow revealed trace tricuspid regurgita tion. There is no tricuspid valve stenosis. PULMONIC VALVE The pulmonic valve is not well visualized. Doppler and Color Flow revealed trace pulmonic valvular re gurgitation. There is no pulmonic valvular stenosis. GREAT VESSELS The aortic root is normal in size. The IVC is dilated and collapses less than 50% with inspiration. PERICARDIAL EFFUSION There is no evidence of significant pericardial effusion. Critical Notification Critical Value: No <Conclusion> The systolic function is mildly impaired. EF 45% Septal motion consistent with conduction abnormality. Mild global hypokinesis. Signed by : Daryl Mensah, Electronically Approved : 04/28/2018 15:26:01
--- NOTE | 2018-04-28 15:33 | PN ---
DATE: SUBJECTIVE: The patient denies any new medical or neurological complaints. He stated he feels stronger this morning and the numbness of the left face has resolved. He denies headaches, visual disturbances, nausea, vomiting, chest pain, shortness of breath or palpitation, dysarthria or dysphagia. OBJECTIVE: GENERAL: Obese male, not in acute distress. VITAL SIGNS: Blood pressure 162/89, respiratory rate 18, pulse is 85 and regular, temperature 97.8, oxygen saturation 97% on room air. HEENT: Normocephalic, atraumatic, otherwise unremarkable. NECK: Supple. Negative for carotid bruit, lymphadenopathy, JVD or thyromegaly. LUNGS: Clear to A and P. CARDIOVASCULAR: Regular rate and rhythm, normal S1, S2. There is no S3, S4 or murmur. ABDOMEN: Soft. Bowel sounds positive. EXTREMITIES: Negative for cyanosis, clubbing or pitting edema. NEUROLOGIC: Normal mental status and intact cranial nerves except for mild bilateral hearing loss. Motor examination revealed a moderate left hemiparesis, presented with marked weakness of the left ____ and moderate weakness of the left upper extremity. The strength in the left lower extremity is 5/5 throughout. Sensory examination revealed normal pinprick and light touch senses throughout. Deep tendon reflexes were symmetric and hypoactive with absent Achilles responses. Gait: The stance is steady. The patient uses a walker for ambulation. IMPRESSION: 1. Questionable transient ischemic attack, presented with exacerbation of previous left hemiparesis -- improved. 2. Hypertension. 3. Chronic obstructive pulmonary disease. 4. Right carotid endarterectomy. RECOMMENDATIONS 1. Await for carotid Doppler study results from [facility] this mornin. Continue with baby aspirin 162 mg p.o. daily. 3. Physical therapy. 4. Continue with current management initiated by Dr. Koenig. M Aneesh TARANGO MD DR: REYNA/treva JOB#: [id number] / [id number]
[2018-04-28 20:11] VITALS: BP 123/77
[2018-04-28] MEDS: DOXEPIN HCL 25 MG CAPSULE PO SCH (20:11)
[2018-04-28 23:03] VITALS: BP 142/83
--- NOTE | 2018-04-29 00:29 | PN ---
DATE: 04/28/2018 SUBJECTIVE: The patient is sitting comfortably in his chair, in no apparent distress. On questioning him, he denied any complaint. Nursing staff did not voice any concern and stated that he had an uneventful night. He was seen by the neurologist, who increased his aspirin to 2 tablets daily. Continue with physical therapy. He did have tachycardia yesterday and we started him on metoprolol as he is known to have paroxysmal atrial fibrillation before and was on Coumadin. He was seen also in consultation by the Cardiology team, who recommended an echocardiogram with a bubble study, although it is very doubtful that he will take any anticoagulant. OBJECTIVE: GENERAL: When I examined him today, he looked well and was clearly in no apparent respiratory distress. No pallor, jaundice, cyanosis, or thyromegaly. No jugular venous distension. No lower limb edema. VITAL SIGNS: His heart rate was 85, blood pressure was 162/89, temperature was 97.6, respiratory rate was 18 and oxygen saturation was 97%. HEAD, EYES, EARS, NOSE AND THROAT: Showed normocephalic, atraumatic. NECK: Supple. HEART: Showed normal first and second heart sounds. No gallop, rub or murmur. CHEST: Clear to auscultation. No crepitation or rhonchi. ABDOMEN: Distended, soft, nontender. NEUROLOGIC: He is awake, alert, responding appropriately. He does have residual left-sided weakness. His output was incompletely recorded. LABORATORY DATA: His lab work this morning showed a white cell count 5700, hemoglobin 15, hematocrit 45, MCV 97 and platelet count 354,000. Serum sodium was 137, potassium 3.8, chloride 99, bicarbonate 26, anion gap of 12, BUN 15, creatinine 0.9, estimated GFR was 84 mL per minute. His glucose 123, calcium was 9.2, magnesium was 2.2. Prothrombin time, INR and APTT are all within normal range. Urinalysis was essentially unremarkable. ASSESSMENT: Fall with left-sided weakness. Apparently, the patient has a right carotid stenosis, status post right carotid endarterectomy, had a Doppler ultrasound done recently at the [place], which was unremarkable. OTHER MEDICAL PROBLEMS: Include hypertension, right carotid stenosis, status post right carotid endarterectomy, chronic obstructive pulmonary disease. PLAN: To continue with current medication. Await echocardiogram with bubble study. Continue with physical and occupational therapy. NASRA RAZO MD DR: ANDRE/treva JOB#: [id number] / [id number]
[2018-04-29 05:13] VITALS: BP 126/81
[2018-04-29] MEDS: ACETAMINOPHEN 500 MG TABLET PO SCH (08:57)
[2018-04-29] MEDS: ASPIRIN 81 MG TAB.CHEW PO SCH (08:57)
[2018-04-29] MEDS: OMEGA-3 FATTY ACIDS/FISH OIL 1,000 MG CAPSULE. PO SCH (08:57)
[2018-04-29] MEDS: CYANOCOBALAMIN (VITAMIN B-12) 1,000 MCG TABLET. PO SCH (08:57)
[2018-04-29] MEDS: MULTIVITAMIN with MINERAL TABLET. PO SCH (08:57)
[2018-04-29] MEDS: FOLIC ACID 1 MG TABLET PO SCH (08:57)
[2018-04-29] MEDS: CHOLECALCIFEROL (VITAMIN D3) 1,000 UNIT TABLET PO SCH (08:58)
[2018-04-29] MEDS: LISINOPRIL 20 MG TABLET PO SCH (08:58)
[2018-04-29] MEDS: CALCIUM CARBONATE 500 MG TABLET PO SCH (08:58)
[2018-04-29] MEDS: EZETIMIBE 10 MG TABLET PO SCH (08:58)
[2018-04-29] MEDS: THIAMINE IM 200 MG/2 ML VIAL. IM SCH (08:59)
--- NOTE | 2018-04-29 10:23 | PDOC ---
PROGRESS NOTES Diagnosis Problem Problems Medical Problems: (1) TIA (transient ischemic attack) Status: Acute Assessment Problems Medical Problems: (1) TIA (transient ischemic attack) Status: Acute 1. Sinus tachycardia in patient with history of paroxysmal atrial fibrillation - remains sinus with now controlled rate. Continue beta blockers and aspirin. [id number] = 5,indicating need for anticoagulation however history of recurrent epistaxis and falls make his a poor candidate for nursing home OAC. Suggest outpatient MCT for AF burden and if significant, consider Watchman. 2. HTNHD with systolic dysfunction - EF 45%. Blood pressure controlled on current therapy. Suggest MPI as systolic dysfunction appears to be new. May be completed outpatient. Request prior echo results from [facility] if available. No overt heart failure at this time. 3. 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 hyperlipidemia - uncontrolled. suggest PSK9 inhibitor as he is statin intolerant. Consider Vascepa for hypertriglyceridemia. Call placed to PCP at [facility] Hilary Kang APRN to discuss recommended outpatient testing as he has no Medicare B and will require testing at [facility] or [facility] referral to complete. Outpatient follow up in 1 month. Subjective "Feeling better, ready to go home" no palpitations, no lightheadedness, no chest pain, increased weakness, slurred speech resolved back to baseline. Objective Vital Signs Date Time Temp Pulse Resp B/P (MAP) Pulse Ox O2 Delivery O2 Flow Rate FiO2 04/29/18 08:58 80 126/81 04/29/18 08:00 Room Air 04/29/18 05:13 97.9 20 95 Intake and Output 04/29/18 07:00 Intake Total 600 ml Balance 600 ml Intake Oral 600 ml # Voids 4 Abdomen: Normal bowel sounds, Soft, No tenderness Heart: Normal S1, Normal S2, Other (no significant murmurs, no gallops, clicks or rubs) Extremities: No cyanosis, No edema General: Alert, Oriented X3, Cooperative, No acute distress Lungs: Clear to auscultation, Other (with minimally decreased bases) Neuro: Normal speech Psych/Mental Status: Mental status NL, Mood NL Review of Relevant I have reviewed the following items henry (where applicable) has been applied. Labs Laboratory Tests Test 04/27/18 10:22 04/27/18 10:23 04/27/18 12:22 04/28/18 06:36 Glucose (Fingerstick) 126 mg/dL (70-99) White Blood Count 5.7 x10^3/uL (4.0-11.0) Red Blood Count 4.63 x10^6/uL (4.30-5.70) Hemoglobin 15.2 g/dL (13.0-17.5) Hematocrit 45.0 % (39.0-53.0) Mean Corpuscular Volume 97 fL (79-100) Mean Corpuscular Hemoglobin 33 pg (25-35) Mean Corpuscular Hemoglobin Concent 34 g/dL (31-37) Red Cell Distribution Width 12.7 % (11.5-14.5) Platelet Count 354 x10^3/uL (140-400) Prothrombin Time 9.8 SEC (9.4-11.4) Prothromb Time International Ratio 1.0 (0.9-1.1) Activated Partial Thromboplast Time 25 SEC (23-33) Sodium Level 136 mmol/L (136-145) 137 mmol/L (136-145) Potassium Level 4.9 mmol/L (3.5-5.1) 3.8 mmol/L (3.5-5.1) Chloride Level 97 mmol/L (98-107) 99 mmol/L (98-107) Carbon Dioxide Level 28 mmol/L (21-32) 26 mmol/L (21-32) Anion Gap 11 (6-14) 12 (6-14) Blood Urea Nitrogen 16 mg/dL (8-26) 15 mg/dL (8-26) Creatinine 0.8 mg/dL (0.7-1.3) 0.9 mg/dL (0.7-1.3) Estimated GFR (Cockcroft-Gault) 95.8 83.7 Glucose Level 140 mg/dL (70-99) 123 mg/dL (70-99) Calcium Level 9.5 mg/dL (8.5-10.1) 9.2 mg/dL (8.5-10.1) Troponin I Quantitative < 0.017 ng/mL (0-0.055) Urine Collection Type Unknown Urine Color Yellow Urine Clarity Clear Urine pH 5.5 Urine Specific Mcgrath 1.010 Urine Protein 30 mg/dl (NEG-TRACE) Urine Glucose (UA) Neg mg/dL (NEG) Urine Ketones (Stick) Neg mg/dL (NEG) Urine Blood Trace (NEG) Urine Nitrite Neg (NEG) Urine Bilirubin Neg (NEG) Urine Urobilinogen Dipstick 0.2 mg/dL (0.2 mg/dL) Urine Leukocyte Esterase Neg (NEG) Urine RBC Occ /HPF (0-2) Urine WBC Occ /HPF (0-4) Urine Squamous Epithelial Cells Few /LPF Urine Bacteria 0 /HPF (0-FEW) Magnesium Level 2.2 mg/dL (1.8-2.4) UE-Nua-C-Type Natriuretic Peptide 203 pg/mL (0-124) Triglycerides Level 177 mg/dL (0-150) Cholesterol Level 224 mg/dL (0-200) LDL Cholesterol, Calculated 111 mg/dL (0-100) VLDL Cholesterol, Calculated 35 mg/dL (0-40) Non-HDL Cholesterol Calculated 146 mg/dL (0-129) HDL Cholesterol 78 mg/dL (40-60) Cholesterol/HDL Ratio 2.0 Medications Current Medications Sodium Chloride 1,000 ml @ 1,000 mls/hr 1X ONCE IV Last administered on 04/27at 11:22; Start 04/27/18 at 11:00; Stop 04/27/18 at 11:59; Status DC Multivitamins/ Calcium (Thera-M Plus) 1 tab DAILY PO Last administered on 04/29at 08:57; Start 04/28/18 at 09:00 Folic Acid (Folic Acid) 1 mg DAILY PO Last administered on 04/29/18at 08:57; Start 04/28/18 at 09:00 Thiamine HCl (Thiamine Im) 100 mg DAILY IM Last administered on 04/29/18at 08: 59; Start 04/28/18 at 09:00; Stop 05/03/18 at 08:59 Chlordiazepoxide (Librium) 50 mg PRN Q1HR PRN PO For CIWA 8-14; Start at 15:00 Chlordiazepoxide (Librium) 100 mg PRN Q1HR PRN PO For CIWA 15 or greater; Start 04/27/18 at 15:00 Lorazepam (Ativan) 4 mg PRN Q1HR PRN PO For CIWA 8-14; Start 04/27/18 at 15:00 Lorazepam (Ativan) 2 mg PRN Q1HR PRN IV For CIWA 8-14; Start 04/27/18 at 15:00 Haloperidol Lactate (Haldol) 5 mg PRN Q4HRS PRN IM Hallucinatns,Confusn, Delirium; Start 04/27/18 at 15:00 Albuterol Sulfate (Ventolin Hfa Inhaler) 2 puff QID PRN IH SHORTNESS OF BREATH/ WHEEZING; Start 04/27/18 at 15:15; Status UNV Vitamin D (Vitamin D3) 1,000 unit DAILY PO Last administered on 04/29/18at 08: 58; Start 04/28/18 at 09:00 Cyanocobalamin (Vitamin B-12) 1,000 mcg DAILY PO Last administered on at 08:57; Start 04/28/18 at 09:00 Senna/Docusate Sodium (Senna Plus) 1 tab PRN DAILY PRN PO CONSTIPATION; Start 04/27/18 at 15:15 Acetaminophen (Tylenol) 1,000 mg DAILY PO Last administered on 04/29/18at 08:57 ; Start 04/28/18 at 09:00 Aspirin (Children'S Aspirin) 81 mg DAILY PO ; Start 04/28/18 at 09:00; Stop at 09:00; Status DC Cyclobenzaprine HCl (Flexeril) 10 mg PRN BID PRN PO MUSCLE SPASMS; Start 04/27 at 15:45 Doxepin HCl (SINEquan) 25 mg QHS PO Last administered on 04/28/18at 20:11; Start 04/27/18 at 21:00 EZETIMIBE (Zetia) 5 mg DAILY PO Last administered on 04/29/18at 08:58; Start 04/28/18 at 09:00 Lisinopril (Prinivil) 40 mg DAILY PO Last administered on 04/29/18at 08:58; Start 04/28/18 at 09:00 Al Hydroxide/Mg Hydroxide (Mylanta Plus Xs) 30 ml PRN QID PRN PO HEARTBURN/ INDIGESTION; Start 04/27/18 at 15:45 Multivitamins/ Calcium (Thera-M Plus) 1 tab DAILY PO ; Start 04/28/18 at 09:00 ; Status Cancel Non-Formulary Medication (Olodaterol HCl (Striverdi Respimat)) 2 puff DAILY IH ; Start 04/28/18 at 09:00; Status UNV Fish Oil (Fish Oil) 1,000 mg BID PO Last administered on 04/29/18at 08:57; Start 04/27/18 at 21:00 Calcium Carbonate/ Glycine (Oscal) 500 mg BIDWMEALS PO Last administered on at 08:58; Start 04/27/18 at 17:00 Albuterol Sulfate (Ventolin) 2.5 mg PRN QID PRN NEB SHORTNESS OF BREATH; Start 04/27/18 at 16:00 Aspirin (Children'S Aspirin) 162 mg DAILY PO Last administered on 04/29/18at 08 :57; Start 04/28/18 at 09:00 Metoprolol Tartrate (Lopressor) 25 mg BID PO Last administered on 04/28/18at 20 :14; Start 04/27/18 at 21:00 Active Scripts Active Reported Naproxen 500 Mg Tablet 0.5 Tab PO BID [place] 3 1,000 Mg Softgel ([place]-3 Fatty Acids/Fish Oil) 1 Each Capsule 1 Each PO BID Cyclobenzaprine Hcl 5 Mg Tablet 1 Tab PO BID PRN [Calcium 500 Mg ] 1 Tab PO BID Zetia (Ezetimibe) 10 Mg Tablet 0.5 Tab PO DAILY Ventolin Hfa Inhaler (Albuterol Sulfate) 18 Gm Hfa.aer.ad 2 Puff IH QID PRN Striverdi Respimat (Olodaterol HCl) 4 Gm Mist.inhal 2 Puff IH DAILY Lisinopril 40 Mg Tablet 1 Tab PO DAILY Doxepin Hcl 50 Mg Capsule 0.5 Cap PO QHS Senokot-S Tablet (Sennosides/Docusate Sodium) 1 Each Tablet 1 Tab PO DAILY PRN Vitamin D3 (Cholecalciferol (Vitamin D3)) 1,000 Unit Tablet 1 Tab PO DAILY Maalox Advanced Suspension (Mag Hydrox/Aluminum Hyd/Simeth) 355 Ml Oral.susp 30 Ml PO QID PRN Extra Strength Non-Aspirin (Acetaminophen) 500 Mg Tablet 1,000 Mg PO DAILY Aspirin 81 Mg Tab.chew 81 Mg PO DAILY Vitamin B-12 (Cyanocobalamin (Vitamin B-12)) 1,000 Mcg Tablet 1,000 Mcg PO DAILY Men's One Daily (Multivitamin With Minerals) 1 Each Tablet 1 Each PO DAILY Vitals/I & O Vital Sign - Last 24 Hours 04/28/18 04/28/18 04/28/18 04/28/18 11:00 15:20 20:00 20:11 Temp 98.4 Pulse 67 80 72 Resp 18 18 20 B/P (MAP) 143/85 (104) 115/75 (88) 123/77 (92) Pulse Ox 96 96 95 O2 Delivery Room Air Room Air Room Air 04/28/18 04/28/18 04/29/18 04/29/18 20:14 23:03 05:13 08:00 Temp 97.4 97.9 Pulse 72 72 80 Resp 20 20 B/P (MAP) 123/77 142/83 (102) 126/81 (96) Pulse Ox 97 95 O2 Delivery Room Air Room Air Room Air 04/29/18 08:58 Pulse 80 B/P (MAP) 126/81 Intake and Output 04/28/18 04/28/18 04/29/18 15:00 23:00 07:00 Intake Total 400 ml 200 ml Balance 400 ml 200 ml [employer] Apr 29, 2018 10:23
[2018-04-29 11:15] VITALS: BP 138/84
[2018-04-29 12:01] VITALS: BP 138/84
[2018-04-29] MEDS: METOPROLOL TART IMMED RELEASE 25 MG TABLET PO SCH (12:01)
--- NOTE | 2018-04-29 20:43 | DS ---
DATE OF DISCHARGE: 04/29/2018 HOSPITAL COURSE: The patient is a 67-year-old male patient who was admitted originally with a fall with left-sided weakness. We did have a CT scan done here, which basically showed no acute intracranial process. At the lateral right frontoparietal junction, he has an old cortical infarction that is seen again involving the lateral right frontoparietal junction as well as involving the right occipital parietal junction, but without appreciable changes. He has also moderate nonspecific white matter low-attenuation seen probably from chronic microvascular ischemic disease, has an old bilateral caudate head lacunar infarct. He apparently had a recent Doppler ultrasound of his right carotid artery, which was apparently unremarkable. His cardiac enzymes were normal. He had an echocardiogram done, which basically showed that his systolic function was mildly impaired at 45%, septal motion consistent with conduction abnormality, and mild global hypokinesis. His triglycerides and total cholesterol were high. His serum triglycerides were 177, total cholesterol was 124 with an LDL of 111. The patient has had no further episodes of falls. He was somewhat hypertensive and has tachycardia, but he was not in AFib. He was seen in consultation by the Cardiology team who basically recommended that the patient have an outpatient stress test and also because he is intolerant to the statin, consider Repatha, as well as Rosuvas for the hypertriglyceridemia. His primary care physician at the [facility] will be contacted to arrange for him to have the nuclear stress test as an outpatient to see if his primary care physician prescribed Repatha and Rosuvas. PHYSICAL EXAMINATION: GENERAL: When I saw him today, he looked well and was clearly in no apparent respiratory distress. No pallor, jaundice, cyanosis, or thyromegaly. No jugular venous distension. No lower limb edema. VITAL SIGNS: His heart rate was 72, blood pressure was 138/84, temperature was 98.4, respiratory rate was 20, and oxygen saturation was 97%. HEAD, EYES, EARS, NOSE AND THROAT: Showed normocephalic, atraumatic. NECK: Supple. HEART: Showed normal first and second sounds. No gallop, rub, or murmur. CHEST: Clear to auscultation. No crepitation or rhonchi. ABDOMEN: Distended, soft, nontender. No guarding or rigidity. No organomegaly. All hernial orifices were intact. Bowel sounds normal. NEUROLOGICAL: He was awake, alert, responding appropriately. Cranial nerves intact. He moves his extremities without difficulty, and ambulates without assistance or assistive devices. His intake over the last 24 hours was 1900, no output was recorded. LABORATORY DATA: This morning showed a serum sodium of 137, potassium 3.8, chloride 99, bicarbonate 26, anion gap 12, BUN 15, creatinine 0.9, estimated GFR was 84 mL per minute, glucose was 123, calcium was 9.2, magnesium was 2.2. His beta natriuretic peptide was only 203. Serum triglycerides were 177, total cholesterol was 224, LDL was 111, VLDL was 35, HDL cholesterol was 78, and the ratio of cholesterol to HDL cholesterol ratio was only 2. His white cell count was 5700, hemoglobin 15, hematocrit 45, MCV 97, and platelet count of 354,000. DISCHARGE MEDICATIONS: He was discharged home to continue on acetaminophen 1000 mg every 8 hours as needed, albuterol sulfate 2 puffs 4 times a day, aspirin 81 mg once a day, calcium 500 mg twice a day, vitamin D3 1000 International Units once a day, cyanocobalamin 1000 mcg p.o. daily, Flexeril 5 mg twice a day, doxepin 50 mg takes half a tablet at bedtime, Zetia 10 mg once a day, lisinopril 40 mg once a day, multivitamin 1 tablet once a day, Olodaterol or Striverdi Respimat 2 puffs daily, omega 3 fatty acid 1000 mg once a day, and Senna S 1 tablet twice a day. FINAL DISCHARGE DIAGNOSES: 1. Fall with left-sided weakness. 2. Hypertensive heart disease with chronic systolic congestive heart failure, right carotid stenosis, status post right carotid endarterectomy, hypertension, chronic obstructive pulmonary disease, mixed hyperlipidemia, and atrial fibrillation with a rapid ventricular response. NASRA RAZO MD DR: ANDRE/treva JOB#: [id number] / [id number]
== END 2018-04-29 14:16 | disposition home or self-care (01) | DRG 65 ==
LOC: ER 10:14 → 1 SOUTH 12:00 → ER 12:35
PROVIDERS: ADMIT Internal Medicine; ATTEND Internal Medicine
DX: I63.81 Other cerebral infarction due to occlusion or stenosis of small artery (principal); I69.354 Hemiplegia and hemiparesis following cerebral infarction affecting left non-dominant side; I50.22 Chronic systolic (congestive) heart failure; E78.2 Mixed hyperlipidemia; F17.210 Nicotine dependence, cigarettes, uncomplicated; H91.93 Unspecified hearing loss, bilateral; I11.0 Hypertensive heart disease with heart failure; I25.10 Atherosclerotic heart disease of native coronary artery without angina pectoris; I48.0 Paroxysmal atrial fibrillation; I65.21 Occlusion and stenosis of right carotid artery; J44.9 Chronic obstructive pulmonary disease, unspecified; W18.39XA Other fall on same level, initial encounter; F10.20 Alcohol dependence, uncomplicated; R29.6 Repeated falls; Z79.82 Long term (current) use of aspirin; Z82.49 Family history of ischemic heart disease and other diseases of the circulatory system; Z88.8 Allergy status to other drugs, medicaments and biological substances; Z79.899 Other long term (current) drug therapy; Y93.89 Activity, other specified; Y92.89 Other specified places as the place of occurrence of the external cause; Y99.8 Other external cause status
CPT/HCPCS: 99291; C8929; 36415; 70450; 71045; 80048; 80061; 81001; 82947; 83735; 83880; 84484; 85027; 85610; 85730; 93005; 96360; 92610; J7030

== ENCOUNTER 2018-08-07 14:29 | Emergency (ER) | payer SELFPAY ==
[~2018-08-07] VITALS: Ht 180.3 cm; Wt 101.6 kg
[~2018-08-07 14:29] MED LIST changes: +ACET-1571 PO; +ALBU2.5V8 IH; +CALCIUM 500 MG PO; +CHOL10003 PO; +CYCL5TAB PO; +DOXE50CA PO; +EZET10TA18 PO; +LISI40TA PO; +MAG355OR11 PO; +NAPR-514 PO; +OLOD4MIS2 IH; +OMEG-33 PO; +SENN-37 PO
--- NOTE | 2018-08-07 14:56 | PHYS DOC ---
Past History Past Medical History: COPD, Hypertension, Stroke Past Surgical History: No Surgical History Smoking: Cigarettes, Less than 1pk/day Alcohol Use: Heavy Drug Use: None Adult General Chief Complaint Chief Complaint: MECHANICAL FALL HPI HPI This is a 67-year-old male presenting to the emergency department after sustaining a mechanical fall and syncopal event. This occurred prior to arrival. He arrived by EMS today who was called after he was able to get a hold of the neighbor threw pounding on the floor at his house. Patient drinks daily and has had a few drinks today. He reports hitting the back of his head though I am unable appreciate objective signs of traumatic injury to the back of the head. He was unable to ambulate after the event and does complain of left hip pain. He denies any abdominal pain or chest pain. Review of systems is negative for nausea vomiting fevers chills or if he denies neck pain or back pain at this time. He denies palpitations. All other review of systems is negative unless otherwise noted in history of present illness. ED course: 67-year-old male presenting the emergency department today after having syncopal event. On arrival he is afebrile with mild tachycardia. Respiratory rate within normal limits. Blood pressure within normal. On exam is unremarkable. No evidence of trauma to the posterior occiput. Otherwise no pain with passive range of motion of the left hip. His abdomen is soft and nontender. Otherwise the remainder the exam is unremarkable. We will perform an EKG along with head neck CT. Blood work. Urinalysis. EKG obtained by myself shows sinus rhythm with a regular rate. ST segments congruent. Not suggestive of ACS. OK interval is mildly prolonged. X-ray of the hip is unremarkable for acute fracture. The patient is able to bear weight on the extremity without pain. He is able to walk a few feet, he does not have his walker here with him today which she usually a baseline uses. Head CT is negative. Neck CT shows chronic findings. The patient does not have neck pain thus we will not pursue MRI at this time. CT abdomen pelvis was performed because the patient had a small bowel loops on x-ray of the pelvis that were concerning for possible obstruction. There is no obstruction on CT. On reexamination the patient is feeling much better. I explained to him that I would like to admit the patient because of his age and his syncopal episode for telemetry monitoring to monitor for episodes of V. tach or dangerous arrhythmias. He would like to sign out AMA. I informed the patient of their right to a medical screening exam and any treatment and/or stabilization that may be necessary regardless of their ability to pay. The patient appears to have intact insight, judgment, and reason. A and O x3. In my opinion, this patient has the capacity to make decisions. I explained the risk of and disability to the patient in plain language which they were able to demonstrate in their own words verbal understanding. The pt has verbalized understanding of my concerns. I offered alternatives to the therapy including close f/u. I recommended the pt follow up with pcp in 1 day. I explained that at any time if the patient changed their mind, we are always open and would be happy to have them back. The patient refused further care and then left against medical advice. Review of Systems Review of Systems SEE ABOVE. Allergies Allergies Allergies Coded Allergies Type Severity Reaction Last Updated Verified Yqdygva-Vcm-Iko Reductase Inhibitor Allergy Intermediate 12/24/13 Yes Physical Exam Physical Exam SEE ABOVE Constitutional: Well developed, well nourished, no acute distress, non-toxic appearance. HENT: Normocephalic, I am unable to appreciate any abrasions lacerations or ecchymosis to the back of the head. No step-offs of the cervical spine., bilateral external ears normal, oropharynx moist, no oral exudates, nose normal. [] Eyes: PERRLA, EOMI, conjunctiva normal, no discharge. Neck: Normal range of motion, no tenderness, supple, no stridor. [] Cardiovascular:Heart rate regular rhythm, no murmur Lungs & Thorax: Bilateral breath sounds clear to auscultation [] Abdomen: Bowel sounds normal, soft, no tenderness, no masses, no pulsatile masses. No rebound tenderness or guarding. Nondistended. Skin: Warm, dry, no erythema, no rash. [] Back: No tenderness, no CVA tenderness. [] Remainder of the thoracic and lumbar spine are nontender without any step-offs abrasions lacerations or ecchymosis. Extremities: He complains of pain in his left hip though with passive range of motion of the hip he has no pain. The remainder of his joints are atraumatic and nontender with normal range of motion and neurovascularly intact. Neurologic: Mental status: Awake oriented and alert x3 Cranial nerves: Extraocular movements intact, eyebrows abigail bilaterally, smile symmetric, uvula elevation nl, shoulder shrug intact bilaterally, tongue protrusion normal DTRs: 2+ Sensation: equal and normal in all extremities Strength: 5/5 in upper and lower extremities bilaterally Psychologic: Affect normal, judgement normal, mood normal. [] Current Patient Data Vital Signs Vital Signs Date Time Temp Pulse Resp B/P (MAP) Pulse Ox O2 Delivery O2 Flow Rate FiO2 08/07/18 14:33 98.2 65 18 96 Room Air EKG EKG [] Radiology/Procedures Radiology/Procedures [] Course & Med Decision Making Course & Med Decision Making Pertinent Labs and Imaging studies reviewed. (See chart for details) [] Dragon Disclaimer Dragon Disclaimer This electronic medical record was generated, in whole or in part, using a voice recognition dictation system. Departure Departure: Impression: Primary Impression: Syncope Disposition: AGAINST MEDICAL ADVICE Condition: GUARDED Referrals: PCP,NO (PCP) Patient Instructions: Syncope Additional Instructions: Thank you for allowing us to participate in your care today. Return to the emergency department you have any new or worsening symptoms, or if you are concerned for any reason. Return to emergency department if you have any new or concerning symptoms including but not limited to fever, chills, nausea, vomiting, intractable pain, any new rashes, chest pain, shortness of air , uncontrolled bleeding, difficulty breathing, and/or vision loss. Follow up with your primary care physician within 1-2 days. Call your Primary Doctor tomorrow and inform them of your visit today. If you do not have a primary care provider we are happy to provide you with a list of our primary care providers contact information. This condition should be evaluated by your primary care physician and any recommended consulting services for continued management within 2 days after discharge. If at any time, you are having difficulty getting into your primary care doctor or a specialist, return to the emergency department. PREMA MCMANUS MD Aug 07, 2018 14:56
--- NOTE | 2018-08-07 15:18 | RAD ---
CT HEAD AND CERVICAL SPINE WO Indication: FALL TODAY, HX OF STROKE Exposure: One or more of the following individualized dose reduction techniques were utilized for this examination: 1. Automated exposure control 2. Adjustment of the mA and/or kV according to patient size 3. Use of iterative reconstruction technique. Comparison: Prior CT head April 27, 2018 Head: Hypoattenuation in the right frontal, parietal and occipital regions are again identified, most compatible with chronic encephalomalacia or old infarction. No acute intracranial hemorrhage, mass effect, midline shift or abnormal extra-axial fluid collection. Small area of hypodensity is identified in the left periventricular white matter, unchanged since prior study, compatible with a small chronic appearing infarct. Orbits appear unremarkable. No large scalp hematoma. Partially visualized sinuses demonstrate mild ethmoid sinus mucosal thickening. Minimal frontal sinus mucosal thickening. No evidence of depressed skull fracture although the location of impact or tenderness is not known. IMPRESSION: 1. Chronic findings are stable. 2. No evidence of acute intracranial hemorrhage or mass effect. Cervical spine Ring of C1 is intact. Cervico-occipital junction intact. C1-C2 appear symmetric. Minimal mucosal thickening of the partially seen maxillary and sphenoid sinuses. Moderate ethmoid sinus mucosal thickening. No evidence of acute appearing fracture. Mild loss of height and endplate irregularity of the C5 and C6 vertebral bodies, have a chronic appearance, without evidence of acute cortical break. Degenerative cervical spondylosis, with at least moderate spinal and severe neural foraminal stenosis at multiple levels. Straightening of the normal lordosis, could be due to patient positioning or muscle spasm. No evidence of perched or locked facet joint. No significant vertebral subluxation. No prevertebral soft tissue hematoma. Thyroid appears symmetric, partially seen. IMPRESSION: 1. Degenerative spondylosis with moderate to severe stenosis. 2. Mild loss of height of C5 and C6 vertebral bodies, compatible with mild fractures. Chronic etiology is favored. MR could clarify as indicated. Electronically signed by: Slim Bhagat MD (08/07/2018 3:15 PM) [facility]
--- NOTE | 2018-08-07 15:22 | RAD ---
CHEST AP ONLY History: FALL TODAY Comparison: April 27, 2018 Cardiac silhouette remains upper limits, unchanged. No pneumothorax, pleural effusion or consolidative infiltrate. Mild gaseous bowel distention below the left hemidiaphragm, presumably due to gastric distention. IMPRESSION: No acute infiltrate. Electronically signed by: Slim Bhagat MD (08/07/2018 3:19 PM) [facility]
[2018-08-07] MEDS ORDERED: MVI, ADULT NO.4 WITH VIT K 10 ML, FOLIC ACID SYRINGE for ER 1 MG, THIAMINE INJ 100 MG i... IV ONE ×4 (15:30)
--- NOTE | 2018-08-07 15:35 | RAD ---
HIP BILATERAL WITH PELVIS History: FALL TODAY, BILATERAL HIP PAIN. Comparison: None are available No evidence of acute fracture. No dislocation. No aggressive bone destruction. Bone demineralization. Vascular calcifications. There is mild distention of small bowel loops particularly in the left abdomen, partially seen. IMPRESSION: 1. No definite acute fracture is identified. MR could be of benefit for further evaluation, particularly if symptoms do not improve. 2. Mild nonspecific small bowel distention, correlate for ileus or obstruction. Electronically signed by: Slim Bhagat MD (08/07/2018 3:32 PM) [facility]
[2018-08-07 15:42] LABS: BASO % 0 % (0-3); EOS # 0.4 x10^3/uL (0.0-0.7); EOS % 6 % (0-3); HEMATOCRIT 41.2 % (39.0-53.0); HEMOGLOBIN 13.9 g/dL (13.0-17.5); LYMPH # 1.8 x10^3/uL (1.0-4.8); LYMPH % 24 % (24-48); MEAN CORPUSCULAR HEMOGLOBIN 33 pg (25-35); MEAN CORPUSCULAR HGB CONC 34 g/dL (31-37); MEAN CORPUSCULAR VOLUME 97 fL (79-100); MONO # 0.8 x10^3/uL (0.0-1.1); MONO % 11 % (0-9); NEUT # 4.6 x10^3uL (1.8-7.7); NEUT % 59 % (31-73); PLATELET COUNT 359 x10^3/uL (140-400); RED BLOOD COUNT 4.27 x10^6/uL (4.30-5.70); WHITE BLOOD COUNT 7.7 x10^3/uL (4.0-11.0)
[2018-08-07 15:48] LABS: ALBUMIN 3.8 g/dL (3.4-5.0); CREATININE 0.7 mg/dL (0.7-1.3); DIRECT BILIRUBIN 0.1 mg/dL (0.0-0.2); GFR 111.8; POTASSIUM 3.5 mmol/L (3.5-5.1); TOTAL BILIRUBIN 0.5 mg/dL (0.2-1.0); TOTAL PROTEIN 7.8 g/dL (6.4-8.2)
--- NOTE | 2018-08-07 15:48 | EKG ---
[address] [address] Test Date: 2018-08-07 Test Time: 15:12:24 Pat Name: MARTHA RICHARDS Department: Room: Gender: M Table Keeper: : [id number] Requested By: PREMA MCMANUS Order Number: [id number] Reading MD: Néstor Mancera Measurements Intervals [place] Rate: 65 P: 22 AK: 216 QRS: 14 QRSD: 100 T: 9 QT: 432 QTc: 455 Interpretive Statements SINUS RHYTHM NONSPECIFIC ST-T WAVE CHANGES. Electronically Signed On 08-10-2018 10:50:01 EXECUTIVE COORDINATOR by Néstor Mancera
--- NOTE | 2018-08-07 16:24 | RAD ---
PQRS Compliance statement: One or more of the following individualized dose reduction techniques were utilized for this examination: 1. Automated exposure control. 2. Adjustment of the mA and/or kV according to patient size. 3. Use of iterative reconstruction technique. Indication:FELL TODAY, PELVIS SHOWED ABNORMALITY TECHNIQUE: CT abdomen and pelvis without IV contrast with multiplanar reformats. COMPARISON: None FINDINGS: Limited evaluation of solid abdominal and pelvic organs due to lack of IV contrast. Heart is normal in size. No pericardial or pleural effusion. Clear lung bases. Noncontrast appearance of the liver, spleen, pancreas within normal limits. Single radiopaque gallstone. No pericholecystic fluid or inflammatory changes. Diffuse nodular thickening of the bilateral adrenal glands, left more than right most likely secondary to adenomatous hyperplasia. No nephrolithiasis or hydronephrosis. Bilateral extrarenal pelvises and mild hydroureter. No bowel obstruction. There is a well-circumscribed fluid density lesion measuring 8.3 x 6.1 x 4.8 cm in the pelvis exerting mass effect on the right superior and lateral wall of the urinary bladder with partially calcified peripherally. There appears to be connection with the base of the cecum. No enlarged retroperitoneal or pelvic adenopathy. Moderate diffuse atherosclerotic disease of the infrarenal aorta and bilateral iliac arteries. The prostate and seminal vesicles show no large mass. Urinary bladder is significant distended without radiopaque stone. No pneumoperitoneum. Diffuse osteopenia. No suspicious bony lesion. IMPRESSION: Limited evaluation of solid abdominal and pelvic organs due to lack of IV contrast. 1. No evidence of bowel obstruction. 2. Right lower quadrant fluid density lesion exerting mass effect on the right superolateral urinary bladder. Differential diagnoses includes appendiceal mucocele or duplication cyst, or lymphocele. 3. Cholelithiasis without imaging evidence of acute cholecystitis. Electronically signed by: Gino Kelly DO (08/07/2018 4:21 PM) [id number]
[2018-08-07 16:33] VITALS: BP 132/87
[2018-08-07 16:56] LABS: BILIRUBIN,URINE NEG (NEG); CLARITY,URINE CLEAR; COLOR,URINE STRAW; GLUCOSE,URINE NEG (NEG)
[2018-08-07 16:57] LABS: BACTERIA,URINE 0 /HPF (0-FEW); NITRITE,URINE NEG (NEG); RBC,URINE 0 /HPF (0-2); SQUAMOUS EPITHELIAL CELL,UR OCC /LPF; UROBILINOGEN,URINE 0.2 mg/dL (0.2 mg/dL); WBC,URINE 0 /HPF (0-4)
== END 2018-08-07 17:07 | disposition left against medical advice (07) ==
LOC: ER 14:29
DX: R55 Syncope and collapse (principal); S09.8XXA Other specified injuries of head, initial encounter; M25.552 Pain in left hip; J44.9 Chronic obstructive pulmonary disease, unspecified; I10 Essential (primary) hypertension; F17.210 Nicotine dependence, cigarettes, uncomplicated; K80.20 Calculus of gallbladder without cholecystitis without obstruction; F10.10 Alcohol abuse, uncomplicated; Z86.73 Personal history of transient ischemic attack (TIA), and cerebral infarction without residual deficits; Z88.8 Allergy status to other drugs, medicaments and biological substances; W18.09XA Striking against other object with subsequent fall, initial encounter; Y93.89 Activity, other specified; Y92.89 Other specified places as the place of occurrence of the external cause; Y99.8 Other external cause status
CPT/HCPCS: 36415; 70450; 71045; 72125; 73521; 74176; 80048; 80076; 81001; 83690; 83735; 84484; 85025; 93005; 96365; 99284; J7120

== ENCOUNTER 2020-07-27 11:19 | Inpatient (IN) | payer MEDICARE, OTHER ==
[~2020-07-27] VITALS: Ht 180.3 cm; Wt 84.0 kg
[~2020-07-27 11:19] MED LIST changes: +CYAN-25 PO; -CYAN10005 PO; -EZET10TA18 PO; +EZET10TA20 PO; -LISI40TA PO; +LISI40TA6 PO
[2020-07-27] MEDS ORDERED: IV NORMAL SALINE 1,000ML 1,000 ML IV ONE ×2 (11:45→20:00)
[2020-07-27 11:52] LABS: BASO % 0 % (0-3); EOS # 0.2 x10^3/uL (0.0-0.7); EOS % 2 % (0-3); HEMATOCRIT 43.3 % (39.0-53.0); HEMOGLOBIN 14.3 g/dL (13.0-17.5); LYMPH # 0.9 x10^3/uL (1.0-4.8); LYMPH % 12 % (24-48); MEAN CORPUSCULAR HEMOGLOBIN 29 pg (25-35); MEAN CORPUSCULAR HGB CONC 33 g/dL (31-37); MEAN CORPUSCULAR VOLUME 87 fL (79-100); MONO # 1.1 x10^3/uL (0.0-1.1); MONO % 14 % (0-9); NEUT # 5.7 x10^3uL (1.8-7.7); NEUT % 72 % (31-73); PLATELET COUNT 481 x10^3/uL (140-400); RED BLOOD COUNT 4.96 x10^6/uL (4.30-5.70); RED CELL DISTRIBUTION WIDTH 15.6 % (11.5-14.5); WHITE BLOOD COUNT 7.9 x10^3/uL (4.0-11.0)
--- NOTE | 2020-07-27 12:01 | EKG ---
[address] [address] Test Date: 2020-07-27 Test Time: 11:53:11 Pat Name: MARTHA RICHARDS Department: Room: Gender: M Lead Applications Developer: JOSUE : 1950 Requested By: PREMA MCMANUS Order Number: [id number] Reading MD: Measurements Intervals [place] Rate: 86 P: -5 ND: 206 QRS: -78 QRSD: 138 T: 13 QT: 422 QTc: 508 Interpretive Statements SINUS RHYTHM ABNORMAL LEFT AXIS DEVIATION LEFT ANTERIOR FASCICULAR BLOCK RIGHT BUNDLE BRANCH BLOCK BIFASCICULAR BLOCK ABNORMAL ECG RI6.02 No previous ECG available for comparison
[2020-07-27 12:07] LABS: CALCIUM 8.9 mg/dL (8.5-10.1); CREATININE 1.4 mg/dL (0.7-1.3)
[2020-07-27 12:08] LABS: POTASSIUM 2.5 mmol/L (3.5-5.1)
[2020-07-27 12:11] LABS: ALBUMIN 3.4 g/dL (3.4-5.0); DIRECT BILIRUBIN 0.2 mg/dL (0.0-0.2); TOTAL BILIRUBIN 0.5 mg/dL (0.2-1.0); TOTAL PROTEIN 7.9 g/dL (6.4-8.2)
--- NOTE | 2020-07-27 12:13 | RAD ---
XR CHEST 1V History: Reason: synocpe / Spl. Instructions: / History: Comparison: August 07, 2018 Findings: Patchy bibasilar opacities. No pleural effusion. No pneumothorax. Unchanged heart size. Impression: 1. Patchy bibasilar opacities, most likely atelectasis. Electronically signed by: Delano Ribera DO (07/27/2020 12:11 PM) [id number]
[2020-07-27] MEDS: POTASSIUM CHLORIDE 20MEQ 100 ML IV SCH ×2 (12:15→13:15)
--- NOTE | 2020-07-27 12:40 | PHYS DOC ---
Past History Past Medical History: COPD, Hypertension, Stroke Past Surgical History: No Surgical History Smoking: Cigarettes, Less than 1pk/day Alcohol Use: Heavy Drug Use: None General Adult EDM: Chief Complaint: SYNCOPE HPI: HPI: 69 yo M presenting to emergency department today with a near syncopal episode. He was standing up when he felt lightheaded he went back and laid back down and felt much better. Currently he denies any symptoms. He had 2 episodes of falls over the past week. He did hit his head during those episodes. He denies any other injuries from the falls. He denies hip pain chest pain shortness of breath or abdominal pain. Onset today. Location generalized. Duration intermittent. Worse with standing. Improved with laying down. Review of systems negative for chest pain shortness of breath abdominal pain vomiting palpitations. All other review of systems negative. ED course: 69-year-old male presenting with a presyncopal episode. On arrival EKG was obtained which shows a sinus rhythm with a regular rate. ST segments congruent. Not suggestive of ACS. QRS is 138 ms. NC interval is prolonged at 206 ms. QTc is prolonged at 508. Potassium was noted to be low. IV potassium and IV fluids given here in the emergency room. Given his low potassium we added on a magnesium test. Head CT ordered. Head CT unremarkable. Magnesium within normal limits. Chest x-ray shows atelectasis. CBC unremarkable. Will admit the patient for IV potassium administration and telemetry monitoring. I spoke with Dr. Dorsey who accepts patient for admission. Current Medications: Current Meds: Current Medications Medications (Trade) Dose Ordered Sig/[facility] Start Time Stop Time Status Last Admin Dose Admin Potassium Chloride 100 ml @ 50 mls/hr Q1H 07/27/20 12:15 07/27/20 14:14 Sodium Chloride 1,000 ml @ 1,000 mls/hr 1X ONCE 07/27/20 11:45 07/27/20 12:44 Allergies: Allergies: Allergies Coded Allergies Type Severity Reaction Last Updated Verified Grhwfav-Ejf-Bqc Reductase Inhibitor Allergy Intermediate 12/24/13 Yes Physical Exam: PE: Constitutional: Well developed, well nourished, no acute distress, non-toxic ap pearance. [] HENT: Normocephalic, atraumatic, bilateral external ears normal, oropharynx moist, no oral exudates, nose normal. [] Eyes: PERRLA, EOMI, conjunctiva normal, no discharge. [] Neck: Normal range of motion, no tenderness, supple, no stridor. [] Cardiovascular:Heart rate regular rhythm, no murmur [] Lungs & Thorax: Bilateral breath sounds clear to auscultation [] Abdomen: Bowel sounds normal, soft, no tenderness, no masses, no pulsatile masses. [] Skin: Warm, dry, no erythema, no rash. [] Back: No tenderness, no CVA tenderness. [] Extremities: No tenderness, no cyanosis, no clubbing, ROM intact, no edema. [] Neurologic: Mental status: Awake oriented and alert x3 Cranial nerves: Extraocular movements intact, eyebrows abigail bilaterally, smile symmetric, uvula elevation nl, shoulder shrug intact bilaterally, tongue protrusion normal Clear speech. Sensation: equal and normal in all extremities Strength: 5/5 in upper and lower extremities bilaterally Psychologic: Affect normal, judgement normal, mood normal. [] Current Patient Data: Labs: Laboratory Tests Test 07/27/20 11:30 White Blood Count 7.9 x10^3/uL (4.0-11.0) Red Blood Count 4.96 x10^6/uL (4.30-5.70) Hemoglobin 14.3 g/dL (13.0-17.5) Hematocrit 43.3 % (39.0-53.0) Mean Corpuscular Volume 87 fL (79-100) Mean Corpuscular Hemoglobin 29 pg (25-35) Mean Corpuscular Hemoglobin Concent 33 g/dL (31-37) Red Cell Distribution Width 15.6 % (11.5-14.5) H Platelet Count 481 x10^3/uL (140-400) H Neutrophils (%) (Auto) 72 % (31-73) Lymphocytes (%) (Auto) 12 % (24-48) L Monocytes (%) (Auto) 14 % (0-9) H Eosinophils (%) (Auto) 2 % (0-3) Basophils (%) (Auto) 0 % (0-3) Neutrophils # (Auto) 5.7 x10^3uL (1.8-7.7) Lymphocytes # (Auto) 0.9 x10^3/uL (1.0-4.8) L Monocytes # (Auto) 1.1 x10^3/uL (0.0-1.1) Eosinophils # (Auto) 0.2 x10^3/uL (0.0-0.7) Basophils # (Auto) 0.0 x10^3/uL (0.0-0.2) Sodium Level 140 mmol/L (136-145) Potassium Level 2.5 mmol/L (3.5-5.1) *L Chloride Level 104 mmol/L (98-107) Carbon Dioxide Level 27 mmol/L (21-32) Anion Gap 9 (6-14) Blood Urea Nitrogen 48 mg/dL (8-26) H Creatinine 1.4 mg/dL (0.7-1.3) H Estimated GFR (Cockcroft-Gault) 50.0 Glucose Level 122 mg/dL (70-99) H Calcium Level 8.9 mg/dL (8.5-10.1) Total Bilirubin 0.5 mg/dL (0.2-1.0) Direct Bilirubin 0.2 mg/dL (0.0-0.2) Aspartate Amino Transferase (AST) 15 U/L (15-37) Alanine Aminotransferase (ALT) 14 U/L (16-63) L Alkaline Phosphatase 205 U/L (46-116) H Troponin I Quantitative < 0.017 ng/mL (0-0.055) Total Protein 7.9 g/dL (6.4-8.2) Albumin 3.4 g/dL (3.4-5.0) Lipase 95 U/L (73-393) Vital Signs: Vital Signs Date Time Temp Pulse Resp B/P (MAP) Pulse Ox O2 Delivery O2 Flow Rate FiO2 07/27/20 11:39 97.9 85 16 99/71 (80) 95 Room Air EKG: EKG: [] Radiology/Procedures: Radiology/Procedures: [] Heart Score: Risk Factors: Risk Factors: DM, Current or recent (<one month) smoker, HTN, HLP, family history of CAD, obesity. Risk Scores: Score 0 - 3: 2.5% MACE over next 6 weeks - Discharge Home Score 4 - 6: 20.3% MACE over next 6 weeks - Admit for Clinical Observation Score 7 - 10: 72.7% MACE over next 6 weeks - Early Invasive Strategies Course & Med Decision Making: Course & Med Decision Making Pertinent Labs and Imaging studies reviewed. (See chart for details) [] Dragon Disclaimer: Dragon Disclaimer: This electronic medical record was generated, in whole or in part, using a voice recognition dictation system. Departure Departure: Impression: Primary Impression: Syncope Additional Impressions: Hypokalemia TRISHA (acute kidney injury) Disposition: 09 ADMITTED INPT THIS HOSP Admitting Physician: Mara Koenig Condition: STABLE Referrals: PCP,NO (PCP) PREMA MCMANUS MD Jul 27, 2020 12:40
--- NOTE | 2020-07-27 13:16 | RAD ---
EXAM: CT Head without IV contrast CLINICAL HISTORY: Reason: syncope and hx of head trauma / Spl. Instructions: / History: COMPARISON: None. TECHNIQUE: Routine CT of the head without contrast. PQRS compliance statement - One or more of the following individualized dose reduction techniques wer e utilized for this study: 1. Automated exposure control 2. Adjustment of the mA and/or kV according to patient size 3. Use of iterative reconstruction technique FINDINGS: Examination is limited by motion artifact, although repeat imaging was performed. Chronic appearing i nfarcts in the right frontal region and right occipital region. Subcortical, periventricular as well as deep white matter hypoattenuation likely changes of chronic s mall vessel disease. There is no evidence of hemorrhage, mass or extra-axial fluid collection. Awad-white differentiation is maintained with no evidence of edema. There is no mass effect or shift of the intracranial structures. The ventricles, basilar cisterns and cortical sulci are normal in size and configuration for the quita ents stated age. The cerebellum and brainstem are unremarkable. The calvarium demonstrates no evidence of fracture or focal lesion. There is normal aeration of the visualized paranasal sinuses and mastoid air cells. The visualized portions of the orbits are normal. Atherosclerotic calcifications of the intracranial internal carotid and vertebral arteries is seen. IMPRESSION: 1. No evidence for acute intracranial process. 2. No cephalization in the right frontal and parietal regions likely from old infarct. Superimposed acute infarct is not excluded and if there is clinical concern, MRI is recommended. Electronically signed by: Aldair Talley MD (07/27/2020 1:14 PM) [id number]
--- NOTE | 2020-07-27 15:33 | NUR ---
PATIENT IS 69 Y O MALE ARRIVED VIA EMS . PATIENT IS A/O X 4, CALM AND COOPERATIVE, DENIED ANY PAIN, DENIED DIZZINESS AT THIS MOMENT, N/V. PATIENT REQUESTED TO HAVE SOME COFFEE, VS OBTAINED, SEE CHART. PATIENT STATED HE IS ABLE TO USE A WALKER, HE HAS LEFT FOOT DROP FROM PREVIOUS CVA AND LEFT HAND WEAKNESS. PATIENT WAS ORIENTED TO THE ROOM AND HOSPITAL POLICIES. PATIENT IS A RESIDENT OF MEDICAL LODGE.
[2020-07-27 15:38] VITALS: BP 84/61
[2020-07-27] MEDS ORDERED: ALBUTEROL SULFATE 2.5 MG/3 ML NEBU. IH PRN (16:30)
[2020-07-27] MEDS ORDERED: MAG HYDROX/AL HYDROX/SIMETH 30 ML ORAL.SUSP PO PRN (17:00)
[2020-07-27] MEDS: POTASSIUM CL 40MEQ D5-0.45NACL 1,000 ML IV SCH (17:07)
--- NOTE | 2020-07-27 17:35 | NUR ---
DR TARANGO HAS BEEN CALLED FOR CONSULT.
[2020-07-27 19:22] VITALS: BP 72/47
[2020-07-27 19:42] VITALS: BP 72/47
[2020-07-27] MEDS: DOXEPIN HCL 25 MG CAPSULE PO SCH (20:21)
[2020-07-27] MEDS: MELATONIN 3 MG TABLET PO PRN (20:42)
--- NOTE | 2020-07-27 20:52 | RAD ---
Exam: CT of abdomen and pelvis without contrast INDICATION: Abdominal pain TECHNIQUE: Sequential axial images through the abdomen and pelvis obtained none IV contrast. Sagittal and coronal reformatted images were reconstructed from the axial data and reviewed. Comparisons: 08/07/2018 FINDINGS: Heart size is normal. No pericardial effusion. Visualized lung bases are clear. No pleural effusion. Evaluation of the solid organs is limited secondary to noncontrast technique. Liver, spleen, pancreas and adrenals are unremarkable. Gallbladder is mildly distended. Gallstones no betsy. No perinephric inflammation or hydronephrosis. No renal or ureteral calculi are identified. Bladder is distended and appears thin-walled. Superior to the bladder there is a cystic partially sarah cified lesion measuring approximately 5.6 x 3.2 cm which appears decreased in size when compared to t he prior exam. Prostate is not enlarged. Large and small bowel are unremarkable. Appendix is nonidentified. No free intra-abdominal air or flu id. No obstruction. Abdominal aorta has a normal course and caliber. No enlarged abdominal lymph nodes are identified. No suspicious osseous lesions or acute fractures. IMPRESSION: 1. No acute process identified in the abdomen or pelvis. 2. Cholelithiasis 3. Interval decreased size of the cystic lesion along the superior lateral aspect of the bladder on the right. Exposure: One or more of the following in the visualized dose reduction techniques were utilized for this examination: 1. Automated exposure control 2. Adjustment of the MA and/or KV according to patient size 3. Use of iterative of reconstructive technique Electronically signed by: Yadira Mendiola MD (07/27/2020 8:50 PM) [facility]
[2020-07-27 21:17] LABS: CALCIUM 8.7 mg/dL (8.5-10.1); CREATININE 1.5 mg/dL (0.7-1.3); GFR 46.1
[2020-07-27 21:36] LABS: POTASSIUM 2.9 mmol/L (3.5-5.1)
[2020-07-27 22:11] VITALS: BP 70/43
[2020-07-28] MEDS ORDERED: TAMS0.4C97 PO (00:07)
[2020-07-28] MEDS ORDERED: METO50TA29 PO (00:07)
[2020-07-28] MEDS ORDERED: LORA0.5T21 PO (00:07)
[2020-07-28] MEDS ORDERED: CYCL-331 PO (00:07)
[2020-07-28] MEDS ORDERED: TRAM50TA PO (00:07)
[2020-07-28] MEDS ORDERED: SERT-268 PO (00:07)
[2020-07-28] MEDS ORDERED: ACET325T9 PO (00:07)
[2020-07-28] MEDS ORDERED: HYDR-2765 PO (00:07)
[2020-07-28] MEDS ORDERED: POTA20TA4 PO (00:07)
[2020-07-28] MEDS ORDERED: CLOP75TA57 PO (00:07)
[2020-07-28] MEDS ORDERED: CELE200C PO (00:07)
[2020-07-28] MEDS ORDERED: CRESTOR10 MG PO (00:07)
--- NOTE | 2020-07-28 00:28 | CONS ---
DATE OF CONSULTATION: 07/27/2020 NEUROLOGIC CONSULTATION REFERRING PHYSICIAN: Dr. Koenig. REASON FOR CONSULTATION: Rule out TIA versus syncope versus presyncope. HISTORY OF PRESENT ILLNESS: This is a 69-year-old right-handed male who was admitted through Emergency Room today 07/27/2020 after he presented with chief complaints of lightheadedness. He laid back and felt better. The patient had 2 falls over the last week, but he denies head injuries, loss of consciousness, chest pain, shortness of breath or palpitation. He complains of generalized weakness. He denies dysarthria or dysphagia, chest pain, shortness of breath or palpitation. Initial nonenhanced head CT scan revealed evidence of old infarcts confined to the right frontal and parietal occipital regions. PAST MEDICAL HISTORY: Significant for stroke, resulted in left hemiparesis and residual of distal weakness of the left upper extremity and wrist drop, history of coronary artery disease, congestive heart failure, and bilateral hearing loss, COPD. PAST SURGICAL HISTORY: Positive for left carotid endarterectomy. SOCIAL HISTORY: The patient smokes less than a pack of cigarettes daily, he used alcohol heavily, or illicit drug use. FAMILY HISTORY: Father had coronary artery disease and myocardial infarction. Mother had dementia. CURRENT MEDICATIONS: Calcium 500 mg twice daily, fish oil, Striverdi 2 puffs daily, multivitamins, Zetia 5 mg p.o. daily, vitamin B12 1000 mcg p.o. daily, vitamin D3 1000 units daily, aspirin 81 mg daily. ALLERGIES: [id number] REDUCTASE INHIBITOR. REVIEW OF SYSTEMS: A 12-point review of system was performed as mentioned above in history of present illness. PHYSICAL EXAMINATION: GENERAL: Well-developed, well-nourished male, not in acute distress. VITAL SIGNS: Blood pressure 84/61, respiratory rate 20, pulse is 90, oxygen saturation 94% on room air, and temperature 97.6. HEENT: Normocephalic, atraumatic, otherwise unremarkable. NECK: Supple. Negative for carotid bruit, lymphadenopathy or thyromegaly. LUNGS: Clear to A and P. CARDIOVASCULAR: Regular rate and rhythm, normal S1, S2. ABDOMEN: Soft. Bowel sounds positive. EXTREMITIES: Negative for cyanosis, clubbing or edema. NEUROLOGICAL: Mental status: The patient is alert and oriented x 3. The speech is fluent. There is no language dysfunction. Memory, judgment, and abstract thinking are normal. The patient denies hallucination or delusion. CRANIAL NERVES: Visual waddell are full. The pupils are reactive to light and accommodation. The extraocular movements are intact. There is no nystagmus. There is no facial motor or sensory deficits. Hearing is diminished bilaterally. The palate is elevated symmetrically. Sternocleidomastoid muscles are powerful bilaterally. The patient shrugs his shoulders symmetrically, protrudes his tongue in the midline without fasciculation or atrophy. MOTOR EXAMINATION: No focal muscle bulk was seen. The strength was 4/5 in the right upper and lower extremity with moderate wrist drop on the left side. The strength elsewhere was 5/5 throughout. SENSORY EXAMINATION: Revealed diminished pinprick and light touch senses in patchy distributions in left upper and lower extremities. Deep tendon reflexes were symmetric and active with absent Achilles responses. GAIT: Not tested. DIAGNOSTIC DATA: Chest x-ray revealed patchy bibasilar opacities consistent with atelectasis. Head CT scan as mentioned above in history of present illness and CT of the abdomen and pelvic revealed no acute process in the abdomen or pelvis, cholelithiasis. LABORATORY DATA: CBC revealed white blood cells of 7.9 thousand, hemoglobin 14.3, hematocrit 43.3, platelet count 481,000. Chemistry revealed sodium 142, potassium 2.9, chloride 107, CO2 of 25, BUN 48, creatinine 1.5, glucose 85, calcium 8.7. Troponin level is normal. EKG revealed sinus rhythm. Otherwise, no cardiac arrhythmia. IMPRESSION: 1. Possible presyncope versus syncope attacks, rule out dehydration, orthostatic hypotension, electrolyte imbalance with significant hypokalemia. 2. Old stroke resulted from frontal and parietal occipital infarcts which resulted in weakness of the distal left upper extremity and hand. 3. Multiple medical problems include hypertension, chronic obstructive pulmonary disease, alcohol abuse. RECOMMENDATIONS: 1. Adequate hydration and check for orthostatic hypotension. 2. Correct the underlying hypokalemia with careful hydration. 3. PT, OT evaluation. Otherwise, we will continue with current management initiated by Dr. Koenig. M Aneesh TARANGO MD DR: REYNA/treva JOB#: [id number] / [id number]
[2020-07-28 01:58] VITALS: BP 84/51
[2020-07-28] MEDS: POTASSIUM CL 40MEQ D5-0.45NACL 1,000 ML IV SCH ×3 (04:55→22:10)
[2020-07-28 05:48] VITALS: BP 104/62
[2020-07-28 06:14] LABS: HEMATOCRIT 37.5 % (39.0-53.0); HEMOGLOBIN 12.4 g/dL (13.0-17.5); RED BLOOD COUNT 4.32 x10^6/uL (4.30-5.70); RED CELL DISTRIBUTION WIDTH 15.7 % (11.5-14.5); WHITE BLOOD COUNT 6.7 x10^3/uL (4.0-11.0)
--- NOTE | 2020-07-28 06:14 | HP ---
ADMIT DATE: 07/27/2020 HISTORY OF PRESENT ILLNESS: The patient is a 69-year-old male patient who was brought to the Emergency Room with a near syncopal episode. He was standing up when he felt lightheaded. He laid down on back and felt much better. Currently, he denies any symptoms. He apparently has 2 episodes of falls over the past week. He did hit his head during those episodes. He denied any other injuries from the falls. He denied any hip pain, chest pain, shortness of breath or abdominal pain. He was brought to the Emergency Room where he was extensively evaluated. He has an EKG on arrival, which showed that he was in sinus rhythm at a regular rate. There is no ST segment elevation, not suggestive of acute coronary syndrome. His QRS duration is 138 milliseconds, FL interval is prolonged at 306 milliseconds, QTc is prolonged at 508. Potassium was noted to be low; IV potassium, IV fluid, given in the Emergency Room. Given his low potassium, ____ was added. He had a head CT scan done. His magnesium was normal at 2.4. His CBC was unremarkable. CT scan of the head showed that the patient has no evidence of acute intracranial process. No cephalization of the right frontal and parietal region, likely from old infarct. There is no evidence of hemorrhage, mass, or extraaxial fluid collection. The amaya-white differentiation is maintained with no evidence of edema. There is no mass effect or shift of the intracranial structures. The ventricles basal cisterns and cortical sulci are normal in size and configuration for the patient's stated age. The cerebellum and brainstem are unremarkable. The calvarium demonstrates no evidence of fracture or focal lesion. There is normal aeration of the visualized paranasal sinuses, mastoid air cells and visualized portion of the orbits are normal. The patient was given a liter of normal saline with potassium chloride and was admitted for further evaluation and treatment. PAST MEDICAL HISTORY: Significant for hypertension, hyperlipidemia, right middle cerebral artery territory infarct with left-sided hemiplegia, has coronary artery disease, status post PCI with stent deployment done about a year ago. He is known to have benign prostatic hypertrophy and chronic obstructive pulmonary disease. PAST SURGICAL HISTORY: Significant for PCI and the stent deployment. No other surgical procedures reported. ALLERGIES: HE IS ALLERGIC TO STATINS. MEDICATIONS: He is currently on following medications: He is on albuterol sulfate 2 puffs 4 times a day, Striverdi Respimat 2 puffs once a day, cyclobenzaprine 5 mg twice a day as needed, Zetia 10 mg once a day, omega-3 fatty acid 1000 mg twice a day. He is on lisinopril 40 mg once a day, aspirin 81 mg once a day, naproxen 250 mg twice a day, acetaminophen 1000 mg once a day. He is on doxepin 25 mg at bedtime. He is on Maalox 30 mL 4 times a day. He is on Senna-S 1 tablet daily. He is on cyanocobalamin 1000 mcg once a day and cholecalciferol or vitamin D3 1000 international unit once a day. He is on multivitamin with mineral 1 tablet once a day, calcium 500 mg twice a day. FAMILY HISTORY: He has 4 brothers, one brother older, at 87 years old, and has stage 4 colon cancer. One brother in a motor vehicle accident. Two brothers are relatively healthy. Two sisters, both younger, the older who has heart problems, the younger sister is healthy. His father at the age of 78 because of myocardial infarction. His mother is still alive at age of 93 and he is currently at [facility]. SOCIAL HISTORY: He is , has 2 sons and 1 daughter. He quit smoking about 15 years ago. He does not drink alcohol or use recreational drugs. 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 REVIEW OF SYSTEMS: The patient denied any blurring of vision, cataract, glaucoma or macular degeneration. Denied any earache, tinnitus or sensorineural deafness. Denied any nosebleeds, stuffy nose or postnasal drip. Denied any sore throat, sore tongue, toothache, hoarseness of voice or difficulty swallowing. Denied any nausea, vomiting, diarrhea or constipation. Denied any hematemesis, melena or hematochezia. Denied any dysuria, frequency or hematuria. Did complain of dizziness and had had multiple syncopal episodes. PHYSICAL EXAMINATION: GENERAL: On arrival to the Emergency Room, he looked well and was clearly in no apparent distress. There was no pallor, jaundice, cyanosis or thyromegaly. No jugular venous distention. No limb edema. VITAL SIGNS: His heart rate was 85, blood pressure was 99/71, temperature was 97.9, respiratory rate was 16, and oxygen saturation was 95% on room air. HEAD, EYES, EARS, NOSE AND THROAT: Showed normocephalic, atraumatic. NECK: Supple. HEART: Normal first and second heart sounds with no gallop, rub or murmur. CHEST: Clear to auscultation. No crepitation or rhonchi. ABDOMEN: Distended, soft, nontender. NEUROLOGIC: He is awake, alert. Somewhat he has slurred speech, but all his cranial nerves seem to be grossly intact. EXTREMITIES: He moves all extremities without difficulty, although he has mild weakness in the left side. LABORATORY DATA: Showed a white cell count 7900, hemoglobin 14, hematocrit 43, MCV 87 and platelet count of 481,000 with normal manual differential. Serum sodium was 140, potassium 2.5, chloride 104, bicarbonate 27, anion gap of 9, BUN 48, creatinine 1.4, estimated GFR was 50 mL per minute, his glucose 122, calcium was 8.9. Total bilirubin, AST, ALT, alkaline phosphatase were normal. First set of cardiac enzymes showed troponin to be 0.017. Total protein was 7.9, albumin was 3.4. ASSESSMENT: In summary, this is a 69-year-old male patient who was admitted with a syncopal episode, hypokalemia and acute kidney injury. PLAN: My plan is to continue with the IV fluid. I will hold his antihypertensive medication and also naproxen and continue with all other medication. Continue with IV fluid, potassium supplement. We will check his orthostatics and repeat all his labs tomorrow morning. NASRA RAZO MD DR: ANDRE/treva JOB#: [id number] / [id number]
[2020-07-28 06:48] LABS: ALBUMIN 2.9 g/dL (3.4-5.0); ALBUMIN/GLOBULIN RATIO 0.8 (1.0-1.7); CALCIUM 8.6 mg/dL (8.5-10.1); CREATININE 1.3 mg/dL (0.7-1.3); GFR 54.4; TOTAL BILIRUBIN 0.3 mg/dL (0.2-1.0); TOTAL PROTEIN 6.4 g/dL (6.4-8.2)
[2020-07-28] MEDS: OMEGA-3 FATTY ACIDS/FISH OIL 1,000 MG CAPSULE. PO SCH (07:54)
[2020-07-28] MEDS: ACETAMINOPHEN 500 MG TABLET PO SCH (07:54)
[2020-07-28] MEDS: CYANOCOBALAMIN (VITAMIN B-12) 1,000 MCG TABLET. PO SCH (07:54)
[2020-07-28] MEDS: ASPIRIN CHEWABLE 81 MG TABLET. PO SCH (07:54)
[2020-07-28] MEDS: CALCIUM CARBONATE 500 MG TABLET PO SCH ×2 (07:54→21:07)
[2020-07-28] MEDS: CHOLECALCIFEROL (VITAMIN D3) 1,000 UNIT TABLET PO SCH (07:54)
[2020-07-28] MEDS: TAMSULOSIN 0.4 MG CAP.ER.24H. PO SCH (07:54)
[2020-07-28] MEDS: EZETIMIBE 10 MG TABLET PO SCH (07:54)
[2020-07-28] MEDS: MULTIVITAMIN with MINERAL TABLET. PO SCH (07:55)
[2020-07-28] MEDS: NON FORMULARY ITEM (Olodaterol HCl (Striverdi Respimat) 2 PUFF) IH SCH (07:58)
--- NOTE | 2020-07-28 07:58 | NUR ---
MED NOTE-RESPIMAT INHALER NOT AVAILABLE AT THIS TIME. WILL GIVE ONCE MADE AVAILABLE FOR PATIENT.
[2020-07-28 10:26] VITALS: BP 121/70
[2020-07-28] MEDS: ACETAMINOPHEN 325 MG TABLET PO PRN ×2 (10:33→21:07)
[2020-07-28] MEDS ORDERED: LORazepam 0.5 MG TABLET PO PRN (14:45)
[2020-07-28] MEDS ORDERED: HYDROcodone/APAP 7.5/325MG 1 TAB TABLET PO PRN (14:45)
[2020-07-28] MEDS ORDERED: POTASSIUM CHLORIDE 20 MEQ TABLET.ER. PO ONE ×2 (15:00→18:00)
--- NOTE | 2020-07-28 19:15 | PN ---
DATE: SUBJECTIVE: The patient is resting, slightly propped up in bed, in no apparent distress. He denied any back pain. Denied any weakness, dizziness or lightheadedness. Has had no more falls. He was able to manage to walk with assistance all the way to the bathroom and back without any difficulty. PHYSICAL EXAMINATION: GENERAL: When I examined him, he looked well and was clearly in no apparent respiratory distress. No pallor, jaundice, cyanosis or thyromegaly. No jugular venous distention. No lower limb edema. VITAL SIGNS: His heart rate was 73, blood pressure was 121/70, temperature was 97.6, respiratory rate was 18 and oxygen saturation was 98%. HEAD, EYES, EARS, NOSE AND THROAT: Showed normocephalic, atraumatic. NECK: Supple. HEART: Showed normal first and second heart sounds. No gallop or murmur. CHEST: Clear to auscultation. No crepitation or rhonchi. ABDOMEN: Distended, soft, nontender. NEUROLOGIC: He is definitely more awake, alert, responding appropriately, continued to have left-sided hemiparesis. His intake was 1760, no output was recorded. LABORATORY DATA: His lab work this morning showed a serum sodium 140, potassium 3, chloride 108, bicarbonate 22, anion gap of 10, BUN 44, creatinine 1.3, estimated GFR was 54 mL per minute. His glucose 151, calcium was 8.6. Total bilirubin, AST, ALT were normal. Alkaline phosphatase slightly elevated. He has 3 sets of cardiac enzymes that ruled out myocardial infarction. His total protein 6.4, albumin 2.9. His white cell count was 6700, hemoglobin 12, hematocrit 37, MCV 87 and a platelet count of 463,000. ASSESSMENT: 1. Syncopal episode, likely due to severe dehydration. 2. Hypokalemia. 3. Acute on chronic kidney injury. Other medical problems include hypertension, hyperlipidemia, right middle cerebral artery territory infarct, left side hemiplegia, coronary artery disease, status post PCI with stent deployment. He is also known to have benign prostatic hypertrophy and chronic obstructive pulmonary disease. PLAN: My plan is to continue IV fluid, continue with potassium. I will add oral potassium and hopefully if all his lumbars improved tomorrow, we will check his orthostatics and then will continue with physical and occupational therapy and if he remains stable, he will be discharged back to [facility] tomorrow. NASRA RAZO MD DR: ANDRE/treva JOB#: [id number] / [id number]
[2020-07-28 19:59] VITALS: BP 130/67
[2020-07-28] MEDS ORDERED: NON FORMULARY ITEM (Rosuvastatin Calcium (Crestor) 10 MG) PO SCH (21:00)
--- NOTE | 2020-07-28 21:00 | NUR ---
Pt found in dark room, sitting hugging her knees by the store. When asked pt explained she was "afraid of the kids outside flailing guns everywhere." Then she also said "the kids outside playing scared me." She is oriented only to self initially in the conversation believing she was in her bedroom. After being reoriented, she remembered she was at the hospital later in the conversation. Pt c/o only pain in her lower back which she says is chronic and that she "has always had back trouble." Pt vitals checked and assisted back to bed. She denies hunger, thirst or the need to toilet. She was given extra blankets. Lights left on, curtains closed. Bed alarm is armed. Will continue to monitor.
[2020-07-28] MEDS: CYCLOBENZAPRINE 10 MG TABLET. PO SCH (21:07)
[2020-07-28] MEDS: MELATONIN 3 MG TABLET PO PRN (21:07)
[2020-07-28] MEDS: DOXEPIN HCL 25 MG CAPSULE PO SCH (21:07)
[2020-07-28 23:18] VITALS: BP 103/64
[2020-07-29 07:00] VITALS: BP 157/82
[2020-07-29 07:20] LABS: ALBUMIN 2.8 g/dL (3.4-5.0); ALBUMIN/GLOBULIN RATIO 0.7 (1.0-1.7); CALCIUM 8.7 mg/dL (8.5-10.1); CREATININE 0.6 mg/dL (0.7-1.3); GFR 132.8; TOTAL BILIRUBIN 0.3 mg/dL (0.2-1.0); TOTAL PROTEIN 6.6 g/dL (6.4-8.2)
[2020-07-29 07:30] LABS: POTASSIUM 4.8 mmol/L (3.5-5.1)
[2020-07-29] MEDS: ASPIRIN CHEWABLE 81 MG TABLET. PO SCH (07:51)
[2020-07-29] MEDS: CYANOCOBALAMIN (VITAMIN B-12) 1,000 MCG TABLET. PO SCH (07:51)
[2020-07-29] MEDS: MULTIVITAMIN with MINERAL TABLET. PO SCH (07:51)
[2020-07-29] MEDS: CHOLECALCIFEROL (VITAMIN D3) 1,000 UNIT TABLET PO SCH (07:51)
[2020-07-29] MEDS: CYCLOBENZAPRINE 10 MG TABLET. PO SCH (07:51)
[2020-07-29] MEDS: NON FORMULARY ITEM (Olodaterol HCl (Striverdi Respimat) 2 PUFF) IH SCH (07:52)
[2020-07-29] MEDS: CALCIUM CARBONATE 500 MG TABLET PO SCH (07:52)
[2020-07-29] MEDS: ACETAMINOPHEN 500 MG TABLET PO SCH (07:52)
[2020-07-29] MEDS: TAMSULOSIN 0.4 MG CAP.ER.24H. PO SCH (07:52)
[2020-07-29] MEDS: POTASSIUM CL 40MEQ D5-0.45NACL 1,000 ML IV SCH (07:52)
[2020-07-29] MEDS: OMEGA-3 FATTY ACIDS/FISH OIL 1,000 MG CAPSULE. PO SCH (07:52)
[2020-07-29] MEDS: EZETIMIBE 10 MG TABLET PO SCH (07:53)
[2020-07-29] MEDS ORDERED: CLOPIDOGREL BISULFATE 75 MG TABLET PO SCH (09:00)
[2020-07-29] MEDS ORDERED: SERTRALINE 50 MG TABLET. PO SCH (09:00)
[2020-07-29 10:40] VITALS: BP 126/74
--- NOTE | 2020-07-29 12:14 | DISCH ---
DISCHARGE ORDERS DISCHARGE DATE: Jul 29, 2020 FINAL DIAGNOSIS SYNCOPE Acute on chronic kidney injury RMCA territory infarct Left sided hemiparesis CONDITION AT DISCHARGE: Stable Code Status: Full SNF STAY <30 DAYS: Yes POST DISCHARGE ORDERS: ACTIVITY ORDERS: Activity as tolerated DIET AFTER DISCHARGE: Cardiac FOLLOW-UP: FFOLLOW-UP WITH: PCP DISCHARGE MEDICATIONS: Home Meds Reported Medications Acetaminophen (TYLENOL) 325 Mg Tablet, 1-2 TAB PO PRN Q6HRS PRN for PAIN, #60 TAB 2 Refills 07/28/20 Tramadol Hcl (TRAMADOL HCL) 50 Mg Tablet, 50 MG PO PRN Q6HRS PRN for PAIN, TAB 07/28/20 Tamsulosin Hcl (FLOMAX) 0.4 Mg Cap.er.24h, 1 CAP PO DAILY for BPH, #30 CAP 11 Refills 07/28/20 Sertraline Hcl (SERTRALINE HCL) 50 Mg Tablet, 50 MG PO DAILY for ANTI- DEPRESSANT, TAB 0 Refills 07/28/20 Rosuvastatin Calcium (CRESTOR) 10 Mg Tablet, 10 MG PO HS for FOR CHOLESTEROL, #30 TAB 0 Refills 07/28/20 Potassium Chloride (POTASSIUM CHLORIDE ) 20 Meq Tablet.er, 20 MEQ PO BID for SUPPLEMENT, TAB 07/28/20 Metoprolol Succinate (METOPROLOL SUCCINATE ( XL )) 50 Mg Tab.er.24h, 1 TAB PO DAILY for HTN, #30 TAB 5 Refills 07/28/20 Hydrocodone Bit/Acetaminophen (HYDROCODONE-APAP 7.5-325 ) 1 Each Tablet, 1 TAB PO PRN Q6HRS PRN for PAIN, TAB 0 Refills 07/28/20 Cyclobenzaprine Hcl (CYCLOBENZAPRINE HCL) 10 Mg Tablet, 1 TAB PO BID for MODERATE PAIN, #90 TAB 07/28/20 Clopidogrel Bisulfate (PLAVIX) 75 Mg Tablet, 1 TAB PO DAILY for CERERAL INFARTION for 30 Days, #30 TAB 0 Refills 07/28/20 Lorazepam (ATIVAN ) 0.5 Mg Tablet, 0.5 MG PO PRN TID PRN for ANXIETY, TAB 07/28/20 Fulton-3 Fatty Acids/Fish Oil (OMEGA 3 1,000 MG SOFTGEL) 1 Each Capsule, 1 EACH PO BID for HIGH CHOLESTEROL NEXT DOSE DUE TONIGHT 04/27/18 Cyclobenzaprine Hcl (CYCLOBENZAPRINE HCL) 5 Mg Tablet, 1 TAB PO BID PRN for MUSCLE SPASM NEXT DOSE DUE TONIGHT 04/27/18 [Calcium 500 Mg ] No Conflict Check, 1 TAB PO BID for SUPPLEMENT NEXT DOSE DUE TONIGHT 04/27/18 Ezetimibe (ZETIA) 10 Mg Tablet, 0.5 TAB PO DAILY for HIGH CHOLESTEROL NEXT DOSE DUE TOMORROW 04/27/18 Albuterol Sulfate (VENTOLIN HFA INHALER) 18 Gm Hfa.aer.ad, 2 PUFF IH QID PRN for SHORTNESS OF BREATH/WHEEZING RESTART AT HOME 04/27/18 Olodaterol HCl (Striverdi Respimat) 4 Gm Mist.inhal, 2 PUFF IH DAILY for SHORTNESS OF BREATH RESTART AT HOME 04/27/18 Doxepin Hcl (DOXEPIN HCL) 50 Mg Capsule, 0.5 CAP PO QHS for SLEEP AIDE NEXT DOSE DUE TONIGHT 04/27/18 Sennosides/Docusate Sodium (SENOKOT-S TABLET) 1 Each Tablet, 1 TAB PO DAILY PRN for CONSTIPATION NEXT DOSE DUE TOMORROW 04/27/18 Cholecalciferol (Vitamin D3) (VITAMIN D3) 1,000 Unit Tablet, 1 TAB PO DAILY for SUPPLEMENT NEXT DOSE DUE TOMORROW 04/27/18 Mag Hydrox/Aluminum Hyd/Simeth (Maalox Advanced Suspension) 355 Ml Oral.susp, 30 ML PO QID PRN for HEARTBURN/INDIGESTION NEXT DOSE DUE TONIGHT NEEDED 04/27/18 Acetaminophen (Extra Strength Non-Aspirin) 500 Mg Tablet, 1000 MG PO DAILY for PAIN/FEVER NEXT DOSE DUE TOMORROW 04/27/18 Aspirin (ASPIRIN) 81 Mg Tab.chew, 81 MG PO DAILY for HEART HEALTH NEXT DOSE DUE TOMORROW 12/23/13 Cyanocobalamin (Vitamin B-12) (VITAMIN B-12) 1,000 Mcg Tablet, 1000 MCG PO DAILY for SUPPLEMENT NEXT DOSE DUE TOMORROW 12/23/13 Multivitamin With Minerals (MEN'S ONE DAILY) 1 Each Tablet, 1 EACH PO DAILY for SUPPLEMENT NEXT DOSE DUE TOMORROW 12/23/13 Discontinued Reported Medications Celecoxib (CELEBREX) 200 Mg Capsule, 2 CAP PO DAILY for PAIN, #30 CAP 2 Refills 07/28/20 Naproxen (NAPROXEN) 500 Mg Tablet, 0.5 TAB PO BID for PAIN NEXT DOSE DUE TONIGHT 04/27/18 Lisinopril (LISINOPRIL) 40 Mg Tablet, 1 TAB PO DAILY for HIGH BLOOD PRESSURE NEXT DOES DUE TOMORROW 04/27/18 NASRA RAZO MD Jul 29, 2020 12:14
--- NOTE | 2020-07-29 12:30 | DS ---
DATE OF DISCHARGE: 07/27/2020 HOSPITAL COURSE: The patient is resting flat in bed, no apparent distress. On questioning him, he denied any complaint. The patient has been up and about, able to walk with a walker with assistance, has had no back pain. Denied any dizziness or lightheadedness. OBJECTIVE: GENERAL: When I examined him this morning, he looked well and was clearly in no apparent respiratory distress. No pallor, jaundice, cyanosis or thyromegaly. No jugular venous distention or limb edema. VITAL SIGNS: His heart rate was 89, blood pressure was 126/74, temperature 97.4, respiratory rate 20, and oxygen saturation was 96%. HEAD, EYES, EARS, NOSE AND THROAT: Showed normocephalic, atraumatic. NECK: Supple. HEART: Showed normal first and second heart sounds. No gallop or murmur. CHEST: Clear to auscultation. No crepitation or rhonchi. ABDOMEN: Distended, soft. NEUROLOGIC: He is awake, alert, responding appropriately. All cranial nerves are intact. He has left-sided hemiparesis. His intake was 1820, output was 500. LABORATORY DATA: As of this morning, his white cell count was 6700, hemoglobin 12, hematocrit 37, MCV 87 and platelet count of 163,000. His chemistry showed a serum sodium 143, potassium 4.8, chloride 112, bicarbonate 24, anion gap of 7, BUN 23, creatinine was 0.6, estimated GFR was 132 mL per minute. His glucose 104, calcium was 8.7. Total bilirubin, AST, ALT were normal. Alkaline phosphatase slightly elevated. Total protein 6.6, albumin was 2.8. Serum triglycerides were 81. Total cholesterol 79, LDL was 29, VLDL was 16, and HDL cholesterol was 34, ratio was 2. DISCHARGE MEDICATIONS: The patient was discharged to [facility] to continue on sertraline 50 mg once a day, Plavix 75 mg once a day, cyclobenzaprine for Flexeril 10 mg twice a day, Crestor 10 mg at bedtime, lorazepam 0.5 mg 3 times a day as needed, hydrocodone/APAP 7.5/325 one tablet every 6 hours. He is on Os-Luis A 500 mg twice a day, fish oil 1000 mg once a day. He is on olodaterol 2 puffs daily, multivitamin 1 tablet once a day, Zetia 5 mg once a day, cyanocobalamin 1000 mcg once a day, vitamin D 1000 units once a day, aspirin 81 mg once a day, Tylenol 1000 mg once a day. FINAL DISCHARGE DIAGNOSES: 1. Syncopal episode, likely due to severe dehydration. 2. Hypokalemia, resolved. His serum potassium is 4.8. 3. [id number] kidney injury, improved. His serum creatinine is down from 1.4 down to 0.6. Other medical problems include hypertension, hyperlipidemia, right middle cerebral artery territory infarct with left side hemiplegia, coronary artery disease, status post percutaneous coronary intervention with stent deployment, benign prostatic hypertrophy, chronic obstructive pulmonary disease. NASRA RAZO MD DR: ANDRE/treva JOB#: [id number] / [id number]
--- NOTE | 2020-07-29 13:07 | NUR ---
PATIENT IS DISCHARGED BACK TO [facility]. PT HAS ALL BELONGINGS DISCHARGE MEDICATIONS, PRESCRIPTIONS AND FOLLOW UP INSTRUCTIONS AT TIME OF DISCHARGE. IV IS REMOVED TELE MONITOR D/C'D. PT IS W/C OFF OF UNIT ACCOMPANIED BY STAFF.
--- NOTE | 2020-07-29 13:45 | PN ---
DATE: 07/28/2020 SUBJECTIVE: The patient denies any new medical or neurological complaints. He continues to have weakness of the left upper and lower extremities due to previous stroke. He denies chest pain, shortness of breath or palpitation. OBJECTIVE: GENERAL: Well-developed, well-nourished male, not in acute distress. VITAL SIGNS: Blood pressure is 121/70, respiratory rate 18, pulse is 73, temperature 97.6, oxygen saturation is 98% on room air. HEENT: Normocephalic, atraumatic, otherwise unremarkable. NECK: Supple. Negative for carotid bruit, lymphadenopathy or thyromegaly. LUNGS: Clear to A and P. CARDIOVASCULAR: Regular rate and rhythm, normal S1, S2. There is no S3, S4. ABDOMEN: Soft. Bowel sounds positive. EXTREMITIES: Negative for cyanosis, clubbing or edema. NEUROLOGICAL EXAM: Mental Status: The patient is alert and oriented x3. The speech is fluent. There is no language dysfunction. Cranial nerves are intact. Motor: Motor examination revealed no focal muscle bulk was seen. The tone is normal. The strength is 4/5 in the left upper and lower extremities with a left wrist drop. The strength on the right side is 5/5 throughout. Sensory examination revealed diminished pinprick and light touch senses in patchy distributions in the left upper and lower extremities. Deep tendon reflexes were symmetric and active with absent Achilles responses bilaterally. Gait: The patient unsteady, but he is able to ambulate using a walker. LABORATORY DATA: CBC revealed white blood cells of 6.7 thousand, hemoglobin 12.4, hematocrit 37.5, platelet count 463,000. Chemistry revealed sodium of 140, potassium 3, chloride 108, CO2 of 22, BUN 44, creatinine 1.3, glucose 151. Liver enzymes are low. IMPRESSION: 1. Presyncope versus presyncopal attack, likely due to dehydration, orthostatic hypotension. 2. Left hemiparesis, more prominent in the left upper extremity with wrist drop secondary to previous stroke. 3. Multiple medical problems include hypertension, chronic obstructive pulmonary disease and chronic kidney disease. RECOMMENDATIONS: 1. Continue with current management initiated by Dr. Koenig. 2. Careful hydration and potassium supplement. 3. Consider PT/OT evaluation. The patient is neurologically stable. M Aneesh TARANGO MD DR: REYNA/treva JOB#: [id number] / [id number]
--- NOTE | 2020-07-29 13:58 | PN ---
DATE: 07/29/2020 SUBJECTIVE: The patient denies any new medical or neurological complaints. He drinks and eats well and he uses a walker for ambulation. He denies any new medical or neurological complaints. OBJECTIVE: GENERAL: Well-developed, well-nourished male, not in acute distress. VITAL SIGNS: Blood pressure is 126/74, respiratory rate 20, pulse is 89 regular, temperature 97.1, oxygen saturation 96% on room air. HEENT: Normocephalic, atraumatic, otherwise unremarkable. NECK: Supple. Negative for carotid bruit, lymphadenopathy or thyromegaly. LUNGS: Clear to A and P. CARDIOVASCULAR: Regular rate and rhythm, normal S1, S2. There is no S3, S4 or murmur. ABDOMEN: Soft. Bowel sounds positive. EXTREMITIES: Negative for cyanosis, clubbing or edema. NEUROLOGICAL: Mental Status: The patient is alert and oriented x 3. The speech is fluent. There is no language dysfunction. Cranial nerves are intact. Motor examination revealed mild left hemiparesis, more prominent on the left upper extremities with a left wrist drop. Sensory examination revealed diminished pinprick and light touch senses in patchy distributions confined to the left upper and lower extremities. Deep tendon reflexes were symmetric and hypoactive without pathology responses. Gait: The patient's gait is unsteady. The patient uses a walker for ambulation. LABORATORY DATA: Chemistry revealed sodium of 143, potassium 4.8, chloride 112, CO2 of 24, BUN 23, creatinine 0.6, glucose 104, and calcium 8.7. Lipid profile is unremarkable except for a low HDL at 34. IMPRESSION: 1. Presyncope versus syncope versus brief syncopal attacks, probably secondary to dehydration and orthostatic hypotension. 2. Multiple medical problems include hypertension, chronic obstructive pulmonary disease, alcohol abuse, chronic kidney disease, and hypokalemia -- corrected. RECOMMENDATIONS: Continue with current management initiated by Dr. Koenig. The patient is neurologically stable. M Aneesh TARANGO MD DR: REYNA/treva JOB#: [id number] / [id number]
== END 2020-07-29 13:07 | DRG 640 ==
LOC: ER 11:19 → 1 SOUTH 14:20 → ER 14:46
PROVIDERS: ADMIT Internal Medicine; ATTEND Internal Medicine
DX: E86.0 Dehydration (principal); N17.0 Acute kidney failure with tubular necrosis; J98.11 Atelectasis; I13.0 Hypertensive heart and chronic kidney disease with heart failure and stage 1 through stage 4 chronic kidney disease, or unspecified chronic kidney disease; I69.354 Hemiplegia and hemiparesis following cerebral infarction affecting left non-dominant side; E78.5 Hyperlipidemia, unspecified; E87.6 Hypokalemia; F10.10 Alcohol abuse, uncomplicated; F17.210 Nicotine dependence, cigarettes, uncomplicated; F19.90 Other psychoactive substance use, unspecified, uncomplicated; H91.93 Unspecified hearing loss, bilateral; I25.10 Atherosclerotic heart disease of native coronary artery without angina pectoris; I50.9 Heart failure, unspecified; I95.1 Orthostatic hypotension; J44.9 Chronic obstructive pulmonary disease, unspecified; M21.339 Wrist drop, unspecified wrist; N18.9 Chronic kidney disease, unspecified; N40.0 Benign prostatic hyperplasia without lower urinary tract symptoms; Z80.0 Family history of malignant neoplasm of digestive organs; Z81.8 Family history of other mental and behavioral disorders; Z82.49 Family history of ischemic heart disease and other diseases of the circulatory system; Z95.5 Presence of coronary angioplasty implant and graft; Z88.8 Allergy status to other drugs, medicaments and biological substances
CPT/HCPCS: 36415; 70450; 71045; 74176; 80048; 80053; 80061; 80076; 83690; 83735; 84484; 85025; 85027; 93005; 96360; J7042; 99285-25; J7030